=== PATIENT | female | born 1940 | race Caucasian/White ===

== ENCOUNTER 2018-03-06 10:43 | Inpatient (IN) | payer MEDICARE, OTHER, SELFPAY ==
[2018-03-06] VITALS (11 sets, daily range): BP systolic 150–202; BP diastolic 50–92; PULSE 65–77; RESP 16–21; TEMP 35.7–36.7; O2SAT 94–100; BMI 26.6
--- NOTE | 2018-03-06 10:53 | DI.RAD.S_ITS ---
PROCEDURE: XR SHOULDER RT MIN 2V INDICATIONS: fall w/ right shoulder pain TECHNIQUE: 2 views of the right of the shoulder were acquired. COMPARISON: None. FINDINGS: Bones there is an acute fracture involving subcapital region of right humeral shaft with superior and medial migration of humeral shaft in relation to humeral head. 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 No dislocation. No suspicious bony lesions. Visualized ribs appear intact. Soft tissues: No suspicious soft tissue calcifications. IMPRESSION: Acute displaced right proximal humeral shaft fracture. Dictated by: Prieto Campos M.D. on 03/06/2018 at 11:44 Approved by: Prieto Campos M.D. on 03/06/2018 at 11:45
--- NOTE | 2018-03-06 10:53 | DI.RAD.S_ITS ---
PROCEDURE: XR CHEST 1V INDICATIONS: fall w/ right shoulder pain TECHNIQUE: One view of the chest was acquired. COMPARISON: None. 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 Lungs and pleura: Ill-defined airspace opacity in the right lower lung field is seen suggestive of right basilar small infiltrate/atelectasis. Left lung is clear. No significant pleural effusion no gross pneumothorax. Mediastinum: Cardiac silhouette is enlarged. Mediastinal contours appear normal. Bones and chest wall: Acute fracture of right proximal humeral shaft is seen. Overlying soft tissues appear unremarkable. IMPRESSION: 1. Right basilar small infiltrate/atelectasis/contusion. No pleural effusion or pneumothorax. 2. Acute proximal right humeral shaft fracture. Dictated by: Prieto Campos M.D. on 03/06/2018 at 11:42 Approved by: Prieto Campos M.D. on 03/06/2018 at 11:44
--- NOTE | 2018-03-06 10:53 | DI.RAD.S_ITS ---
PROCEDURE: XR HUMERUS RT 2V INDICATIONS: fall with pain TECHNIQUE: 2 views of the humerus were acquired. COMPARISON: None. FINDINGS: Bones: No dislocations. No suspicious bony lesions. There is a comminuted fracture at the subcapital femoral neck and extending into the head of the tonsil right humerus, moderately angulated and impacted. Soft tissues: No suspicious soft tissue calcifications. IMPRESSION: Femoral head/neck fractures as discussed, with moderate angulation and impaction distortion along the fracture planes, acute in appearance. Dictated by: Dimitris Mullins M.D. on 03/06/2018 at 11:22 Approved by: Dimitris Mullins M.D. on 03/06/2018 at 11:27
[2018-03-06] MEDS: HYDROMORPHONE 0.5 MG INJ IV (11:04)
--- NOTE | 2018-03-06 11:11 | DI.CT.S_ITS ---
PROCEDURE: CT HEAD/BRAIN WO CON INDICATIONS: fall w/ head laceration TECHNIQUE: Noncontrast 4.5 mm thick angled axial sections acquired from the foramen magnum to the vertex, with coronal and sagittal reformats. For radiation dose reduction, the following was used: automated exposure control, adjustment of mA and/or kV according to patient size. COMPARISON: [facility], CT, CT CERVICAL SPINE WO CON, 03/06/2018, 11:08. FINDINGS: Image quality: Excellent. CSF spaces: Basal cisterns are patent. No extra-axial fluid collections. The ventricles are symmetric in size and shape. Brain: No intracranial masses but there is subarachnoid hemorrhage bilaterally, mild in overall severity, involving the lateral frontoparietal junction on the right and the superior left frontal and frontoparietal junction on the left. No mass effect is associated. No sign of hemorrhagic brain parenchymal contusion is found. No subdural or epidural hemorrhage is associated.. There is cerebral volume loss for age, with resultant ventricular and sulcal prominence. There are periventricular and deep white matter chronic small vessel ischemic changes. There is intracranial internal carotid artery atherosclerosis. Skull and face: Calvarium and visualized facial bones appear intact, without suspicious lesions. Sinuses: Visualized sinuses and mastoids are clear. IMPRESSION: Subarachnoid hemorrhage bilaterally, without mass effect, mild in overall severity. No additional traumatic injury sounds. Findings immediately called and discussed with the emergency room physician caring for the patient. Dictated by: Dimitris Mullins M.D. on 03/06/2018 at 11:28 Approved by: Dmiitris Mullins M.D. on 03/06/2018 at 11:40
--- NOTE | 2018-03-06 11:11 | DI.CT.S_ITS ---
PROCEDURE: CT CERVICAL SPINE WO CON INDICATIONS: fall w/ head laceration TECHNIQUE: Noncontrast 3 mm thick sections acquired from the skull base to the T4 level. Sagittal and coronal reformats were then constructed. For radiation dose reduction, the following was used: automated exposure control, adjustment of mA and/or kV according to patient size. COMPARISON: [facility], CR, XR CHEST 1V, 03/06/2018, 10:58. FINDINGS: Image quality: Excellent. Bones: No fractures or dislocations. Visualized superior ribs are intact. Soft tissues: Prevertebral soft tissues are normal in thickness. No paravertebral hematomas. No apical pneumothoraces. Note is made of a 2.9 cm ovoid sharply demarcated structure within the right thyroid lobe, measuring 20.9 Hounsfield units (above water density) which may represent a proteinaceous cyst but a solid lesion has not been entirely excluded given the noncontrast nature of this study. IMPRESSION: Degenerative disc disease moderately severe some C3-C7, but without fracture or traumatic subluxation associated. No normal abdominal Note is made of a large cystic structure, middle and lower thirds of the left thyroid lobe, as an incidental finding. This measures slightly above water in radiodensity at 20.9 Hounsfield units, and should be further assessed by dedicated thyroid ultrasound when symptoms have improved. Dictated by: Dimitris Mullins M.D. on 03/06/2018 at 11:40 Approved by: Dimitris Mullins M.D. on 03/06/2018 at 11:43
[2018-03-06] MEDS: HYDROMORPHONE 1 MG INJ 0.5 MG IV ×5 (11:35→19:27)
[2018-03-06 13:22] LABS: Add Manual Diff / Slide Review NO; Basophils Percent Auto 0.3 % (0-2); Eosinophils Percent Auto 1.2 % (2-4); Hematocrit 35.6 % (36-46); Hemoglobin 11.8 g/dL (12.0-16.0); Lymphocytes Percent Auto 6.5 % (25-40); Mean Corpuscular HGB Conc 33.3 % (30-36); Mean Corpuscular Hemoglobin 29.7 PG (26-34); Mean Corpuscular Volume 89.4 fL (80-100); Neutrophils Absolute Auto 10700 /uL (3000-5900); Platelet Count 227 X10^3/uL (150-400); Red Blood Cell Count 3.98 X10^6/uL (4.0-5.2); Red Cell Distribution Width 14.4 % (11.6-14.8); White Blood Cell Count 12.2 X10^3/uL (4.5-11.0)
[2018-03-06 13:30] LABS: INR 1.1 (0.9-1.3)
[2018-03-06 13:32] LABS: PTT Partial Thromboplastin Tim 31 SECONDS (26.4-36.2)
[2018-03-06 13:34] LABS: BUN Creatinine Ratio 28.6 (6-22); Blood Urea Nitrogen 20 mg/dL (7-17); Calcium 9.9 mg/dL (8.4-10.2); Carbon Dioxide 26 mmol/L (22-32); Chloride 108 mmol/L (98-107); Estimated Glomerular Filt Rate > 60.0 mL/min (>60); Glucose 113 mg/dL (80-110); HEMOLYSIS < 15 (0-50); Potassium 3.9 mmol/L (3.4-5.1); Sodium 142 mmol/L (137-145)
--- NOTE | 2018-03-06 15:13 | DI.CT.S_ITS ---
PROCEDURE: CT HEAD/BRAIN WO CON INDICATIONS: 77 year old woman with subarachnoid hemorrhage. TECHNIQUE: Noncontrast 4.5 mm thick angled axial sections acquired from the foramen magnum to the vertex, with coronal and sagittal reformats. For radiation dose reduction, the following was used: automated exposure control, adjustment of mA and/or kV according to patient size. COMPARISON: [facility], CT, CT HEAD/BRAIN WO CON, 03/06/2018, 11:08. FINDINGS: Image quality: Excellent. CSF spaces: Basal cisterns are patent. No extra-axial fluid collections. The ventricles are symmetric in size and shape. Brain: Foci of subarachnoid hemorrhage are present bilaterally, involving the right frontal lobe, left frontal lobe and left parietal lobe, minimally changed from the last exam. No masses or mass effect. There is mild cerebral volume loss for age, with resultant ventricular and sulcal prominence. There are mild periventricular and deep white matter chronic small vessel ischemic changes. There is intracranial internal carotid artery atherosclerosis. Skull and face: Calvarium and visualized facial bones appear intact, without suspicious lesions. Sinuses: Visualized sinuses and mastoids are clear. IMPRESSION: Stable subarachnoid hemorrhage bilaterally involving the right frontal and the left frontal and parietal lobes. There is no mass effect or midline shift. Dictated by: Diogo Wan M.D. on 03/06/2018 at 15:38 Approved by: Diogo Wan M.D. on 03/06/2018 at 15:44
--- NOTE | 2018-03-06 15:13 | ED.FALL ---
HPI - Fall <Harshil Dubose MD - Last Filed: 03/06/18 18:16> General Chief Complaint: Fall Stated Complaint: Ground Level Fall Time Seen by Provider: 03/06/18 10:52 History of Present Illness HPI Narrative: HPI 77-year-old female with no significant past medical history presents for evaluation of right shoulder shoulder pain and a right forehead laceration, patient tripped over uneven ground and fell onto her right shoulder and forehead on a hard paved surface, no LOC. Patient denies further injuries. No anticoagulation. No preaching chest pain, shortness breath, abdominal pain. M/S/F/SocHx notable for: please see HPI; remainder reviewed with patient and in chart. ROS: Negative constitutional, eye, cardiovascular, pulmonary, GI, , MSK, skin, neurologic, psychiatric, endocrine unless noted in the HPI. Exam General: Pleasant, in moderate discomfort, not in extremis. HENT: approximately 6 cm long full thickness transverse laceration above the right lateral eyebrow, no further evidence of facial or head trauma, TTP of orbits, TTP of midface, malocclusion, or septal hematoma. OP clear and moist, dentition intact. Eyes: EOMI, PERRL. Neck: Tracheal midline. No visible skin defects, no step-offs, no c-spine TTP, no stridor, or JVD. Cardiac: Regular rate and rhythm. Chest: No crepitus, visual evidence of trauma, no tenderness to palpation. Equal chest rise. Pulm: Clear to auscultation bilaterally, normal work of breathing without accessory muscle usage. Abd: Soft, nontender to palpation, nondistended, no guarding or visual evidence of trauma. Back: No spinous process tenderness to palpation, no step-offs or visible injuries. Pelvis: Stable, no tenderness to palpation or instability. RUE: market tenderness by the proximal right humerus/shoulder, no scapular or clavicular tenderness to palpation, distal humerus, elbow, forearm, wrist, hand, fingers visually normal without tenderness palpation, muscle compartments soft and nontender, chili pepper grinder 5/5, 2+ radial pulse, sensation intact to touch at hand. Wrist, and fingers with full functional range of motion. LUE: No visible injuries. Industry Consultant 5/5, radial pulse 2+, sensation intact at hand. Shoulder, elbow, wrist, and fingers with full functional range of motion. Muscle compartments of the upper arm, forearm, and hand are soft and without marked tenderness to palpation. RLE: No visible injuries. Dorsiflexion 5/5, distal pulse 2+, sensation intact at foot. Hip, knee, ankle, and toes with full functional range of motion. Muscle compartments of the thigh, calf, and foot are soft and without marked tenderness to palpation. LLE: No visible injuries. Dorsiflexion 5/5, distal pulse 2+, sensation grossly intact. Hip, knee, ankle, and toes with full functional range of motion. Muscle compartments of the thigh, calf, and foot are soft and without marked tenderness to palpation. Neuro: AOx3, CN VII intact Skin: Warm and dry (focal injuries noted above). Psych: Normal affect and judgment. Labs / Imaging (pertinent): CT Head: Subarachnoid hemorrhage bilaterally, without mass effect, mild in overall severity. No additional traumatic injury sounds. Findings immediately called and discussed with the emergency room physician caring for the patient. CT C-spine: Degenerative disc disease moderately severe some C3-C7, but without fracture or traumatic subluxation associated. Note is made of a large cystic structure, middle and lower thirds of the left thyroid lobe, as an incidental finding. This measures slightly above water in radiodensity at 20.9 Hounsfield units, and should be further assessed by dedicated thyroid ultrasound when symptoms have improved. XR R Humerus: Acute displaced right proximal humeral shaft fracture. XR R Shoulder: Femoral head/neck fractures as discussed, with moderate angulation and impaction distortion along the fracture planes, acute in appearance. CXR: 1. Right basilar small infiltrate/atelectasis/contusion. No pleural effusion or pneumothorax. 2. Acute proximal right humeral shaft fracture. CT head (repeat): stable subarachnoid hemorrhage bilaterally involving the right frontal and the left frontal parietal lobes. There is no mass effect or midline shift. MDM Previous chart, nursing note, and vitals reviewed. A: 77-year-old female with no significant past medical history presents for evaluation of right shoulder shoulder pain and a right forehead laceration, patient tripped over uneven ground and fell onto her right shoulder and forehead on a hard paved surface, no LOC. Evaluation: 1. SAH - patient with bilateral subarachnoid hemorrhages, no discernible neuro deficits. Discussed case with Dr. Fontanez, neurosurgery at . Images reviewed, exam reviewed, recommended repeat CT, if no change in CTR neuro exam findings patient is appropriate for outpatient follow up with their primary care physician. 2. Laceration - forehead laceration repaired by Lars Muñoz NP. Please refer to Nakia Taytatiana's documentation. 3. Right humeral fracture - CMS intact. Discussed with Dr. Luz, orthopedic surgeon commercial construction estimator, recommend sling and outpatient follow up. Coaptation splint placed, sling provided. ED Course: patient able to ambulate with significant right hip discomfort, right hip and pelvis films pending at time of patient care transfer to the [facility] overnight provider, Dr. Beebe. Impression: fall, bilateral SAH, right humeral fracture. (please reference below for remainder of encounter information) Related Data Home Medications Medication Instructions Recorded Confirmed Vitamin C 1 tab PO DAILY 03/06/18 03/06/18 amlodipine 2.5 mg PO DAILY 03/06/18 03/06/18 atorvastatin 10 mg PO BEDTIME 03/06/18 03/06/18 calcium carbonate-vitamin D3 1 tab PO DAILY 03/06/18 03/06/18 [Calcium 600 + D(3)] carvedilol 1 tab PO BID 03/06/18 03/06/18 inulin [Fiber Gummies] 1 tab PO DAILY 03/06/18 03/06/18 multivitamin 1 tab PO DAILY 03/06/18 03/06/18 omeprazole 1 cap PO DAILY 03/06/18 03/06/18 oxybutynin chloride 5 mg PO BID-TID PRN 03/06/18 03/06/18 Allergies Allergy/AdvReac Type Severity Reaction Status Date / Time No Known Drug Allergies Allergy Verified 03/06/18 10:58 Exam <Harshil Dubose MD - Last Filed: 03/06/18 18:16> Initial Vital Signs Initial Vital Signs: Vital Signs Temperature 96.3 F L 03/06/18 10:50 Pulse Rate 72 03/06/18 10:50 Respiratory Rate 18 03/06/18 10:50 Blood Pressure 202/86 H 03/06/18 10:50 Pulse Oximetry 97 03/06/18 10:50 <JOSHUA Coffey - Last Filed: 03/06/18 15:32> Initial Vital Signs Initial Vital Signs: Vital Signs Temperature 96.3 F L 03/06/18 10:50 Pulse Rate 72 03/06/18 10:50 Respiratory Rate 18 03/06/18 10:50 Blood Pressure 202/86 H 03/06/18 10:50 Pulse Oximetry 97 03/06/18 10:50 <JOSHUA Coffey - Last Filed: 03/06/18 15:32> Laceration Repair Laceration 1: Site: face (3 cm laceration just superior to the right eyebrow area) Side (If applicable): right Size (cm): 3 Description: irregular Depth: simple, single layer Local Anesthetic: lidocaine 1% Amount of anesthesia used (mL): 4 Pre-repair: wound explored and irrigated extensively Skin layer closed with: nylon Size (cm): 5-0 Number of sutures: 7 Technique: simple, interrupted Course <Harshil Dubose MD - Last Filed: 03/06/18 18:16> Orders Ordered: ED Orders 03/06/18 10:53 XR chest 1V Stat XR humerus RT 2V Stat XR shoulder RT min 2V Stat 03/06/18 11:11 CT cervical spine wo con Stat CT head/brain wo con Stat 03/06/18 13:15 Basic Metabolic Panel Stat Complete Blood Count AUTO DIFF Stat Partial Thromboplastin Time Stat Prothrombin Time INR Stat 03/06/18 15:13 CT head/brain wo con Stat 03/06/18 17:36 XR hip w pel if done RT 2V Stat Hydromorphone HCl (Dilaudid) 0.5 mg IV NOW PRN PRN Reason: pain Last Admin: 03/06/18 14:47 Dose: 0.5 mg Admin: 03/06/18 13:59 Dose: 0.5 mg Admin: 03/06/18 11:35 Dose: 0.5 mg Discontinued Medications Hydromorphone HCl (Dilaudid) 0.5 mg IV NOW ONE Stop: 03/06/18 10:54 Last Admin: 03/06/18 11:04 Dose: 0.5 mg Hydromorphone HCl (Dilaudid) 0.5 mg IV NOW ONE Stop: 03/06/18 13:58 Last Admin: 03/06/18 14:01 Dose: Not Given Vital Signs - 8 hr 03/06/18 10:50 03/06/18 12:05 03/06/18 13:03 Temperature 96.3 F L Pulse Rate 72 77 76 Respiratory Rate 18 18 18 Blood Pressure [Left Arm] 202/86 H 169/92 H 194/64 H Pulse Oximetry 97 99 95 03/06/18 14:18 03/06/18 15:15 03/06/18 16:07 Temperature Pulse Rate 74 73 76 Respiratory Rate 21 16 16 Blood Pressure [Left Arm] 158/50 H 161/52 H 163/52 H Pulse Oximetry 94 99 96 <JOSHUA Coffey - Last Filed: 03/06/18 15:32> Orders Ordered: ED Orders 03/06/18 10:53 XR chest 1V Stat XR humerus RT 2V Stat XR shoulder RT min 2V Stat 03/06/18 11:11 CT cervical spine wo con Stat CT head/brain wo con Stat 03/06/18 13:15 Basic Metabolic Panel Stat Complete Blood Count AUTO DIFF Stat Partial Thromboplastin Time Stat Prothrombin Time INR Stat 03/06/18 15:13 CT head/brain wo con Stat 03/06/18 17:36 XR hip w pel if done RT 2V Stat Hydromorphone HCl (Dilaudid) 0.5 mg IV NOW PRN PRN Reason: pain Last Admin: 03/06/18 14:47 Dose: 0.5 mg Admin: 03/06/18 13:59 Dose: 0.5 mg Admin: 03/06/18 11:35 Dose: 0.5 mg Discontinued Medications Hydromorphone HCl (Dilaudid) 0.5 mg IV NOW ONE Stop: 03/06/18 10:54 Last Admin: 03/06/18 11:04 Dose: 0.5 mg Hydromorphone HCl (Dilaudid) 0.5 mg IV NOW ONE Stop: 03/06/18 13:58 Last Admin: 03/06/18 14:01 Dose: Not Given Vital Signs - 8 hr 03/06/18 10:50 03/06/18 12:05 03/06/18 13:03 Temperature 96.3 F L Pulse Rate 72 77 76 Respiratory Rate 18 18 18 Blood Pressure [Left Arm] 202/86 H 169/92 H 194/64 H Pulse Oximetry 97 99 95 03/06/18 14:18 03/06/18 15:15 03/06/18 16:07 Temperature Pulse Rate 74 73 76 Respiratory Rate 21 16 16 Blood Pressure [Left Arm] 158/50 H 161/52 H 163/52 H Pulse Oximetry 94 99 96 MDM - Fall <Harshil Dubose MD - Last Filed: 03/06/18 18:16> Lab Data Result diagrams: 03/06/18 13:15 03/06/18 13:15 Lab Results 03/06/18 03/06/18 03/06/18 Range/Units 13:15 13:15 13:15 WBC 12.2 H (4.5-11.0) X10^3/uL RBC 3.98 L (4.0-5.2) X10^6/uL Hgb 11.8 L (12.0-16.0) g/dL Hct 35.6 L (36-46) % MCV 89.4 (80-100) fL MCH 29.7 (26-34) PG MCHC 33.3 (30-36) % RDW 14.4 (11.6-14.8) % Plt Count 227 (150-400) X10^3/uL Neut % (Auto) 88.0 H (50-75) % Lymph % (Auto) 6.5 L (25-40) % [place] % (Auto) 4.0 (3-14) % Eos % (Auto) 1.2 L (2-4) % Baso % (Auto) 0.3 (0-2) % Neut # (Auto) 22543 H (1264-3124) /uL PT 12.0 (10.1-12.7) SECONDS INR 1.1 (0.9-1.3) APTT 31 (26.4-36.2) SECONDS Sodium 142 (137-145) mmol/L Potassium 3.9 (3.4-5.1) mmol/L Chloride 108 H (98-107) mmol/L Carbon Dioxide 26 (22-32) mmol/L BUN 20 H (7-17) mg/dL Creatinine 0.70 (0.52-1.04) mg/dL Estimated GFR > 60.0 (>60) mL/min BUN/Creatinine Ratio 28.6 H (6-22) Glucose 113 H (80-110) mg/dL Calcium 9.9 (8.4-10.2) mg/dL <JOSHUA Coffey - Last Filed: 03/06/18 15:32> Lab Data Lab Results 03/06/18 03/06/18 03/06/18 Range/Units 13:15 13:15 13:15 WBC 12.2 H (4.5-11.0) X10^3/uL RBC 3.98 L (4.0-5.2) X10^6/uL Hgb 11.8 L (12.0-16.0) g/dL Hct 35.6 L (36-46) % MCV 89.4 (80-100) fL MCH 29.7 (26-34) PG MCHC 33.3 (30-36) % RDW 14.4 (11.6-14.8) % Plt Count 227 (150-400) X10^3/uL Neut % (Auto) 88.0 H (50-75) % Lymph % (Auto) 6.5 L (25-40) % [place] % (Auto) 4.0 (3-14) % Eos % (Auto) 1.2 L (2-4) % Baso % (Auto) 0.3 (0-2) % Neut # (Auto) 82107 H (7299-9095) /uL PT 12.0 (10.1-12.7) SECONDS INR 1.1 (0.9-1.3) APTT 31 (26.4-36.2) SECONDS Sodium 142 (137-145) mmol/L Potassium 3.9 (3.4-5.1) mmol/L Chloride 108 H (98-107) mmol/L Carbon Dioxide 26 (22-32) mmol/L BUN 20 H (7-17) mg/dL Creatinine 0.70 (0.52-1.04) mg/dL Estimated GFR > 60.0 (>60) mL/min BUN/Creatinine Ratio 28.6 H (6-22) Glucose 113 H (80-110) mg/dL Calcium 9.9 (8.4-10.2) mg/dL Discharge Plan Departure Prescriptions: No Action multivitamin Tablet 1 tab PO DAILY RF: 0 carvedilol 12.5 mg tablet 1 tab PO BID RF: 0 atorvastatin 10 mg tablet 10 mg PO BEDTIME RF: 0 amlodipine 2.5 mg tablet 2.5 mg PO DAILY RF: 0 omeprazole 40 mg capsule,delayed release(DR/EC) 1 cap PO DAILY RF: 0 oxybutynin chloride 5 mg Tablet 5 mg PO BID-TID PRN (Reason: Bladder Spasms) RF: 0 calcium carbonate-vitamin D3 [Calcium 600 + D(3)] 600 mg(1,500mg) -400 unit Tablet 1 tab PO DAILY RF: 0 inulin [Fiber Gummies] 2 gram Tablet,Chewable 1 tab PO DAILY RF: 0 Vitamin C 1 tab PO DAILY RF: 0
[2018-03-06] MEDS: ONDANSETRON 4 MG/2 ML INJ IV (17:30)
--- NOTE | 2018-03-06 17:36 | DI.RAD.S_ITS ---
PROCEDURE: XR HIP W PEL IF DONE RT 2V INDICATIONS: pain, difficulty ambulating TECHNIQUE: AP pelvis with lateral view(s) of the right hip(s). COMPARISON: None. FINDINGS: Bones: No fractures or dislocations. Pelvic ring appears intact. No suspicious bony lesions. Soft tissues: The visualized bowel gas pattern is normal. No suspicious soft tissue calcifications. IMPRESSION: Prior right total hip arthroplasty, no trauma found, no evidence of device loosening or disruption. Dictated by: Dimitris Mullins M.D. on 03/06/2018 at 19:27 Approved by: Dimitris Mullins M.D. on 03/06/2018 at 19:27
--- NOTE | 2018-03-06 19:36 | PC.NURSE ---
1700- pt up to bathroom, unable to bear weight to right leg, co pain to hip, Dr Dubose notified, Orders received for x-rays. Pt escorted by WC back to room.
[2018-03-06] MEDS: OXYCODONE/ACETAMINOPHEN 5/325 TABLET 1 TAB PO (22:49)
--- NOTE | 2018-03-07 | DI.CT.S_ITS ---
PROCEDURE: CT HEAD/BRAIN WO CON INDICATIONS: f/u SAH TECHNIQUE: Noncontrast 4.5 mm thick angled axial sections acquired from the foramen magnum to the vertex, with coronal and sagittal reformats. For radiation dose reduction, the following was used: automated exposure control, adjustment of mA and/or kV according to patient size. COMPARISON: [facility], CT, CT HEAD/BRAIN WO CON, 03/06/2018, 11:08. [facility], CT, CT HEAD/BRAIN WO CON, 03/06/2018, 15:14. FINDINGS: Image quality: Excellent. CSF spaces: Basal cisterns are patent. No extra-axial fluid collections. The ventricles are symmetric in size and shape. Brain: There are bilateral frontal subarachnoid hemorrhage, unchanged from the prior examinations. No intracranial masses. There is mild cerebral volume loss for age, with resultant ventricular and sulcal prominence. There are moderate periventricular and deep white matter chronic small vessel ischemic changes. Old lacunar infarcts are noted in basal ganglia bilaterally and right internal capsule. Skull and face: Calvarium and visualized facial bones appear intact, without suspicious lesions. Sinuses: Visualized sinuses and mastoids are clear. IMPRESSION: Stable bilateral frontal subarachnoid hemorrhage. Dictated by: Diogo Wan M.D. on 03/07/2018 at 10:53 Approved by: Diogo Wan M.D. on 03/07/2018 at 10:56
[2018-03-07 02:11] VITALS: BP 149/68; PULSE 98; RESP 16; TEMP 36.6; O2SAT 98
[2018-03-07] MEDS: OXYCODONE/ACETAMINOPHEN 5/325 TABLET 1 TAB PO ×4 (05:28→18:28)
[2018-03-07 06:00] VITALS: BP 170/66; PULSE 68; RESP 17; TEMP 36.6; O2SAT 97
[2018-03-07 08:42] VITALS: BP 166/59; PULSE 68; RESP 18; TEMP 36.8; O2SAT 96
[2018-03-07 12:00] VITALS: BP 148/56; PULSE 69; RESP 18; TEMP 36.9; O2SAT 94
--- NOTE | 2018-03-07 12:04 | CM.DANOTE ---
DCP: Case received, EMR reviewed and met with patient. Introduced self and role. DCP template completed with information currently available. Patient is a 77 year old female who admitted yesterday pm to the care of the hospitalist team. PCP: Dr. Dillard. Payer: confirmed: [employer], work related injury. Patient is a 77 year old female from [place], [place] She works for [employer], and while here, she tripped outside on the sidewalk, fracturing her right shoulder. Has a son that also lives in [place]. Patient alert and oriented, having difficulty bearing weight. P: May need fdc. Will also follow up with patient's son as well. Patient stated that she has stayed at a facility in [place], but need more information on this. Also, continue to note progress with physical therapy as well. Tana Terry, RN/Adjunct Professor Of [employer]
--- NOTE | 2018-03-07 14:56 | PC.NURSE ---
Day Shift Note: Patient doing well this shift. Alert and oriented times 3. Patient pain rated 4/10, relieved with percocet. No acute distress. No voiced complaint.
--- NOTE | 2018-03-07 15:10 | CM.DPC ---
DCP Cont: Patient is inpatient status. Did state that she had been in a nursing facility in the [facility] called [facility]. Called the admissions office, and requested that they call back. P: DCP continue to plan and assess, and will follow up again with retirement. Tana Terry RN/[employer]
--- NOTE | 2018-03-07 15:39 | PM.CN ---
History of Present Illness Date Patient Seen: 03/07/18 Time Patient Seen: 15:39 Chief complaint: Ground Level Fall Reason for consult: Ground level fall Requesting provider: Mariaelena Beebe Narrative: Gloria is a eliazar and very active 77-year-old lady who lives just [place]. 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 She decided to go to the art [place] and was walking around when she came across a bump in the concrete. She recalls that there was some sort of sign on the bump but she does not remember what it was. She says she tripped and ?went flying?. When she landed she says she had a terrible pain in her arm and pain in her hip. She reports that her glasses cut her head and it broke the right side of her glasses. She is fully oriented and relates this entire story to me. She denies headache. She reports that her right arm and shoulder are terribly uncomfortable. The initial pain in her hip has improved though her hip is still very very sore. She reports that she has an orthopedic surgeon in the [facility] that she has seen for a number of years. She has had a hip replacement and 2 knee replacements and has a very good relationship with him. She also tells me that her son and [id number] live across the street from her and will be coming up tomorrow to see a concert. They would be able to take her home if she was ready for discharge. At the time of admission, she was noted to have a right proximal humerus fracture and bilateral subarachnoid hemorrhages in the frontal region of the brain as well as a laceration over her right eye. The laceration was closed in the emergency room. She has had a repeat CT scan of her head today which shows that the subarachnoid hemorrhage is stable and has not caused significant cerebral edema and there is no evidence of further bleeding. The ER physician discussed the management of this injury with the neurologist at [facility] at the time of diagnosis. He recommended a repeat CT and if no change follow-up with primary care physician. [facility] Social History household members: none Smoking Status: Never smoker Meds Home Medications Medication Instructions Recorded Confirmed Type Vitamin C 1 tab PO DAILY 03/06/18 03/06/18 History amlodipine 2.5 mg PO DAILY 03/06/18 03/06/18 History atorvastatin 10 mg PO BEDTIME 03/06/18 03/06/18 History calcium carbonate-vitamin D3 1 tab PO DAILY 03/06/18 03/06/18 History [Calcium 600 + D(3)] carvedilol 1 tab PO BID 03/06/18 03/06/18 History inulin [Fiber Gummies] 1 tab PO DAILY 03/06/18 03/06/18 History multivitamin 1 tab PO DAILY 03/06/18 03/06/18 History omeprazole 1 cap PO DAILY 03/06/18 03/06/18 History oxybutynin chloride 5 mg PO BID-TID PRN 03/06/18 03/06/18 History Allergies Allergy/AdvReac Type Severity Reaction Status Date / Time No Known Drug Allergies Allergy Verified 03/06/18 10:58 Review of Systems Review of Systems All systems reviewed & are unremarkable except as noted in HPI and below Exam Vital Signs (past 8 hours): - 03/07/18 08:42 03/07/18 12:00 Temperature 98.2 F 98.5 F Pulse Rate 68 69 Respiratory Rate 18 18 Blood Pressure 166/59 H 148/56 H Pulse Oximetry 96 94 Oxygen Delivery Method Room Air Narrative Exam Narrative: Very pleasant well-nourished well-developed lady who appears much younger than her stated age. HEENT: There is a 2-3 cm laceration over her right eye that has been closed and is well approximated. She has bruising above and below her eye. Her sclera are clear and extraocular muscles are clearly intact. There is tenderness over her face but no crepitance. There is no evidence of midface instability. She reports her dental occlusion is normal. Lungs: Clear to auscultation bilaterally Heart: Regular rate and rhythm with a 3/5 systolic ejection murmur (patient reports she has had a aortic valve replacement in the past) Abdomen: Soft, nontender, active bowel sounds. Extremities: Right upper extremity is immobilized in a sling. Left upper extremity does not reveal any bruising or lesions. Right hip is tender to palpation without obvious injury. She has limited flexion secondary to pain. Left hip and leg are nontender. Bilateral lower extremities are without edema. No evidence of tissue ischemia. Objective Labs Result Diagrams: 03/06/18 13:15 03/06/18 13:15 Labs: Please see a full list of CT scans in the ER physician's note. No injuries were noted with the exception of those listed above. Assessment & Plan Plan: Assessment/Plan Narrative: Very pleasant and active 77-year-old lady who sustained a ground level fall and proximal humerus fracture as well as subarachnoid hemorrhage. Fortunately, Gloria is very healthy and has tolerated this insult well. I think she is appropriate for discharge in the morning with her son and [id number]. She can follow up with her primary care physician within 2 weeks and follow up with her orthopedic surgeon within 48 hr of discharge.
--- NOTE | 2018-03-07 15:47 | P.CONS_ITS ---
History of Present Illness Date Patient Seen: 03/07/18 Time Patient Seen: 15:39 Chief complaint: Ground Level Fall Reason for consult: Ground level fall Requesting provider: Mariaelena Beebe Narrative: Gloria is a eliazar and very active 77-year-old lady who lives just [place]. 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 She recalls that there was some sort of sign on the bump but she does not remember what it was. She says she tripped and ?went flying?. When she landed she says she had a terrible pain in her arm and pain in her hip. She reports that her glasses cut her head and it broke the right side of her glasses. She is fully oriented and relates this entire story to me. She denies headache. She reports that her right arm and shoulder are terribly uncomfortable. The initial pain in her hip has improved though her hip is still very very sore. She reports that she has an orthopedic surgeon in the [facility] that she has seen for a number of years. She has had a hip replacement and 2 knee replacements and has a very good relationship with him. She also tells me that her son and [id number] live across the street from her and will be coming up tomorrow to see a concert. They would be able to take her home if she was ready for discharge. At the time of admission, she was noted to have a right proximal humerus fracture and bilateral subarachnoid hemorrhages in the frontal region of the brain as well as a laceration over her right eye. The laceration was closed in the emergency room. She has had a repeat CT scan of her head today which shows that the subarachnoid hemorrhage is stable and has not caused significant cerebral edema and there is no evidence of further bleeding. The ER physician discussed the management of this injury with the neurologist at [facility] at the time of diagnosis. He recommended a repeat CT and if no change follow-up with primary care physician. [facility] Social History household members: none Smoking Status: Never smoker Meds Home Medications Medication Instructions Recorded Confirmed Type Vitamin C 1 tab PO DAILY 03/06/18 03/06/18 History amlodipine 2.5 mg PO DAILY 03/06/18 03/06/18 History atorvastatin 10 mg PO BEDTIME 03/06/18 03/06/18 History calcium carbonate-vitamin D3 1 tab PO DAILY 03/06/18 03/06/18 History [Calcium 600 + D(3)] carvedilol 1 tab PO BID 03/06/18 03/06/18 History inulin [Fiber Gummies] 1 tab PO DAILY 03/06/18 03/06/18 History multivitamin 1 tab PO DAILY 03/06/18 03/06/18 History omeprazole 1 cap PO DAILY 03/06/18 03/06/18 History oxybutynin chloride 5 mg PO BID-TID PRN 03/06/18 03/06/18 History Allergies Allergy/AdvReac Type Severity Reaction Status Date / Time No Known Drug Allergies Allergy Verified 03/06/18 10:58 Review of Systems Review of Systems All systems reviewed & are unremarkable except as noted in HPI and below Exam Vital Signs (past 8 hours): - 03/07/18 08:42 03/07/18 12:00 Temperature 98.2 F 98.5 F Pulse Rate 68 69 Respiratory Rate 18 18 Blood Pressure 166/59 H 148/56 H Pulse Oximetry 96 94 Oxygen Delivery Method Room Air Narrative Exam Narrative: Very pleasant well-nourished well-developed lady who appears much younger than her stated age. HEENT: There is a 2-3 cm laceration over her right eye that has been closed and is well approximated. She has bruising above and below her eye. Her sclera are clear and extraocular muscles are clearly intact. There is tenderness over her face but no crepitance. There is no evidence of midface instability. She reports her dental occlusion is normal. Lungs: Clear to auscultation bilaterally Heart: Regular rate and rhythm with a 3/5 systolic ejection murmur (patient reports she has had a aortic valve replacement in the past) Abdomen: Soft, nontender, active bowel sounds. Extremities: Right upper extremity is immobilized in a sling. Left upper extremity does not reveal any bruising or lesions. Right hip is tender to palpation without obvious injury. She has limited flexion secondary to pain. Left hip and leg are nontender. Bilateral lower extremities are without edema. No evidence of tissue ischemia. Objective Labs Result Diagrams: 03/06/18 13:15 03/06/18 13:15 Labs: Please see a full list of CT scans in the ER physician's note. No injuries were noted with the exception of those listed above. Assessment & Plan Plan: Assessment/Plan Narrative: Very pleasant and active 77-year-old lady who sustained a ground level fall and proximal humerus fracture as well as subarachnoid hemorrhage. Fortunately, Gloria is very healthy and has tolerated this insult well. I think she is appropriate for discharge in the morning with her son and [id number]. She can follow up with her primary care physician within 2 weeks and follow up with her orthopedic surgeon within 48 hr of discharge.
[2018-03-07 16:11] VITALS: BP 160/63; PULSE 73; RESP 20; TEMP 36.7; O2SAT 95
--- NOTE | 2018-03-07 16:58 | PT.IIE ---
Physical Therapy Inpatient Evaluation/Re-Eval M1 PT/OT-IP Prior Functional Status Start: 03/07/18 16:57 Freq: NEEDED Status: Active Protocol: Document 03/07/18 16:58 DLM (Rec: 03/07/18 17:30 DL [id number]) Medical Review Prior Functional Status Medical History Reviewed Yes Diet/Fluid Consistency Regular Communication WNL Mobility and Gait Independent without device Activities of Daily Living and IADL's Independent, works at [employer], takes care of her cats Social History Household Members none Living Arrangements House Number of Floors (Floors) One Floor Number of Stairs To Enter/Railing? 2, one rail Home Environment Standard Height Toilet Tub/Shower Home Equipment Front Wheel Walker Quad Cane Straight Cane Lift Recliner Employment Status Enterprise Engineer Employed Additional Social History Comment Son lives close, pt is from [place], [place]. Pt drives. M2 PT-IP Current Condition Start: 03/07/18 16:57 Freq: NEEDED Status: Active Protocol: Document 03/07/18 16:58 DLM (Rec: 03/07/18 17:30 DL [id number]) Physical Therapy Current Condition Current Condition Evaluation Date 03/07/18 Treatment Diagnosis impaired gait, right hip pain, right humeral fx Onset Date 03/06/18 Precautions Shoulder Precautions Sling Brace right humeral brace on pt for displaced fx Other Precautions no use of right shoulder, no weight bearing on right shoulder Weight Bearing Status Weight Bearing Status Full Weight Bearing Allowed Weight Bearing Amount (enter % no limitations right LE or #) (%) M3 PT-IP Subjective Start: 03/07/18 16:57 Freq: NEEDED Status: Active Protocol: Document 03/07/18 16:58 DLM (Rec: 03/07/18 17:30 DL [id number]) Subjective Physical Therapy Visit Type Type Initial Evaluation Visit Start Time 16:30 Visit Stop Time 16:58 Total Visit Minutes 28 Number of ASSET COORDINATOR Visits 0 Physical Therapy Visit Comments Patient Comments She feels she needs to go to SNF rehab, wants to have her Son take her home tomorrow. She reports she can call her orthopedic surgeon after she gets home. When asked she can not state a plan on how she will get to the SNF after going home nor how she will manage help at home if she discharges home. Therapy Pain Assessment Pain When Pain Assessed During Mobility Pain Present Pain Present Pain Reported Location Right Hip Intensity 6 Scale Used Numeric (1 - 10) Description Aching Pain Behaviors Guarding Pain Management Techniques Apply Cold Right Arm Intensity 4 Scale Used Numeric (1 - 10) Description Aching Pain Management Techniques Apply Cold Re-positioning M4 PT-IP Mobility and Gait Start: 03/07/18 16:57 Freq: NEEDED Status: Active Protocol: Document 03/07/18 16:58 DLM (Rec: 03/07/18 17:30 DLM [id number]) PT-Bed Mobility Assessment Supine to Sit Supine to Sit Standby Assistance Scooting Scooting to Edge of Bed Contact Guard Assistance PT-Transfer Assessment Sit to and From Stand Sit to and from Stand Minimal Assistance Equipment Transfer Assistive Device Gait Belt Small Based Quad Cane Orthotic/Prosthetic Devices or Brace: Yes Transfers Transfer Destination Chair Transfer Technique Stand Step Pivot Transfer Ability Level of Assist Contact Guard Assistance Minimal Assistance Comments Mobility Comments pain with attempts to advance right LE for stepping, sling and right humeral brace on pt Gait Assessment Gait Gait Assistance Required: Minimum Assistance Distance (Feet) (feet) 6 Assistive Devices Assistive Device Gait Belt Small Based Quad Cane Orthotic/Prosthetic Devices or Brace: Yes Gait Deviations General Gait Pattern Antalgic Decreased Stride Length Decreased Feet Clearance Factors Limiting Gait Function Factors Limiting Gait Function Decreased Strength Pain Comments Gait Comments Pt has difficulty advancing right LE for functional step, she inches her foot along on the floor or leans left and uses a partial right LE swing (LE fully extended) with minimal floor clearance. She is unsteady with her weight shift even with the quad cane. She reports the pain in right hip limits use of her LE. Pain described in anterior and posterior right hip. Pt left up in recliner with ice on right shoulder and hip. PT-Balance Assessment Sitting Balance and Reactions Static Sitting Balance Ability Good Dynamic Sitting Balance Ability Good Standing Balance and Reactions Static Standing Balance Ability Fair Dynamic Standing Balance Ability Fair Device Used quad cane M5 PT-IP Objective Assessments Start: 03/07/18 16:57 Freq: NEEDED Status: Active Protocol: Document 03/07/18 16:58 DLM (Rec: 03/07/18 17:30 DLM [id number]) Orientation Orientation/Cognition Level of Alertness Alert Orientation Name Age Birthday Month Date Year Day of Week Place Situation Safety Awareness Decreased Safety Awareness Memory Description No Deficits Noted Comments intermittent difficulty forming words during conversation, difficulty problem solving for home safety and discharge planning Gross Range of Motion Upper Extremity ROM Assessment Right Impaired Impairments unable to assess right shoulder due to fx and bracing Lower Extremity ROM Assessment Right Impaired Impairments pain with right hip flexion, tolerates 90 degrees in sitting Strength Upper Extremity Strength Assessment Right Impaired Shoulder not tested due to fx Lower Extremity Strength Assessment Right Impaired Hip hip flexion 2+/5 with pain Knee 5/5 Ankle DF 5/5 Coordination Assessment Gross Coordination Gross Coordination WNL Sensation Assessment Sensation Gross Sensation WNL Muscle Tone Muscle Tone WNL Yes M6 PT-IP Treatment Start: 03/07/18 16:57 Freq: NEEDED Status: Active Protocol: Document 03/07/18 16:58 DLM (Rec: 03/07/18 17:30 DLM [id number]) Physical Therapy Treatment Education Education Provided Precautions Weight Bearing Status Safety Equipment Issued Equipment Type and Company none, pt has sling and right humeral brace on from ED M7 PT-IP Assessment and Plan Start: 03/07/18 16:57 Freq: NEEDED Status: Active Protocol: Document 03/07/18 16:58 DLM (Rec: 03/07/18 17:30 DLM [id number]) PT Summary Assessment and Plan Potential Rehabilitation Potential Good Status of Condition at Evaluation Evolving Summary Impairments Pain ROM Strength Balance Bed Mobility Transfers Gait Activity Tolerance Assessment Summary Pt is significantly below her baseline functionally. Her right hip pain interferes with her ability to ambulate. The quad cane helps but her gait is still not functional for home. She has no functional use of her right shoulder due to her fx so using a fWW is not possible. She is not safe to discharge home alone at this time. She has no plan for assistance at home. Her Son lives close and can drive her back to [place] but he works and is not available to help her. She reports the desire to go to SNF but can not problem solve a plan to get there. Goals Bed Mobility Goal Independent Transfer Goal Standby Assistance Cane Gait Goal Contact Guard Assistance Cane Gait Distance 50 feet Other Goals up and down 2 steps with rail and moderate assist Days to Meet Goals 4 Frequency of Treatment Frequency Of Treatment Twice a Day Treatment Plan Physical Therapy Treatment Plan Bed Mobility Training Transfer Training Gait Training Therapeutic Exercise Balance Retraining Discharge Planning Hot or Cold Pack Recommendations To Nursing Amount of Assist Needed 1 Person Assist Discharge Recommendations PT Discharge Recommendations SNF Rehab
--- NOTE | 2018-03-07 18:03 | P.HP_ITS ---
History of Present Illness Chief complaint: Ground Level Fall Narrative: PATIENT IS A 77-YEAR-OLD FEMALE WAS IN HER USUAL HEALTH UNTIL THE DAY OF ADMISSION WHEN SHE HAD A FALL. PATIENT STATES THAT SHE WORKS FOR [employer] AND PICKED UP BY A VEHICLE AND MARVEL TROPONIN UP TO AND A CORDIS TO [facility]. [place] AND [place] THE WAY BACK FROM [place] AT [address] [place] HER FOOT STRUCK A CONCRETE AREA AND SHE FELL. SHE 1ST NOTICED PAIN OF HER SHOULDER AND SHE ALSO HAD BLEEDING FROM HER EYEBROW AREA. [place] FEMALE BYSTANDER CALLED 911 AND SHE WAS BROUGHT TO THE ED. PRIOR TO THE FALL THERE WAS NO PRESYNCOPE SYNCOPE LIGHTHEADEDNESS PALPITATIONS CHEST PAIN SHORTNESS OF BREATH. AFTER THE FALL THERE WAS NO LOSS OF CONSCIOUSNESS MOTOR WEAKNESS DYSARTHRIA DYSPHAGIA SPEECH DIFFICULTY SHE PRESENTED TO THE ED COGNITIVELY INTACT WITH NORMAL VITAL SIGNS. CT OF THE HEAD REVEALED SUBARACHNOID HEMORRHAGE BILATERALLY, WITHOUT MASS EFFECT, MILD OVERALL SEVERITY. THE CASE WAS DISCUSSED WITH DR. SEGUNDO NEUROSURGEON AT THE [facility]. HE DID NOT FEEL THAT ANY ACUTE INTERVENTION WAS NECESSARY AT THIS TIME. HE RECOMMENDED FOLLOW-UP CT HEAD EXAMS. IF THESE WERE UNREMARKABLE THEN IT WOULD BE APPROPRIATE FOR OUTPATIENT FOLLOW-UP WITH THE PATIENT'S PRIMARY CARE PHYSICIAN. SHE ALSO COMPLAINED OF SHOULDER PAIN MENTIONED ABOVE HUMERUS X-RAY TWO VIEW ON THE RIGHT WAS TAKEN. IT REVEALED A FEMORAL FRACTURE. EMERGENCY ROOM PHYSICIAN DISCUSSED THE INJURY WITH DR. CLARKE OF ORTHOPEDICS AND HE FAILED OUTPATIENT FOLLOW-UP WOULD BE SUFFICIENT AND RECOMMENDED THAT A SPLINT BE PLACED. ALSO THE PATIENT COMPLAINED OF RIGHT HIP PAIN. X-RAY REVEALED HER PRIOR RIGHT TOTAL HIP ARTHROPLASTY, NO TRAUMA WAS FOUND, NO EVIDENCE OF DEVICE LOOSENING OR DISRUPTION. BECAUSE OF HER KNEE FOR FATHER EVALUATION SHE WAS ADMITTED TO THE HOSPITAL Patient History Medical History HTN (hypertension) (Acute) Hyperlipidemia (Acute) Surgical History H/O aortic valve replacement (Acute) History of total bilateral knee replacement (Acute) History of total right hip replacement (Acute) Family & Social History Family History: Reviewed 03/07/18 by Mary Meza MD Social History: PATIENT IS A . SHE LIVES ALONE. SHE IS NOT USED ALCOHOL IN YEARS. SHE DISCONTINUED HER TOBACCO HABIT 50 YEARS AGO. SHE HAS A DAUGHTER WHO LIVES IN [place]. THE [place] . SHE WORKS FOR [employer] WHICH IS NEAR THE adjust [facility] household members none Prior Living Arrangements House Safety & Behavioral: Feels Safe in Current Yes Environment Been Physically Hurt or No Threatened By a Person Suicidal Ideation Description None Suicide Plan Description No Plan Tobacco & Substance use: Smoking Status Never smoker alcohol intake frequency holiday/special occasion Substance Use Type does not use Meds Home Medications Medication Instructions Recorded Confirmed Type Vitamin C 1 tab PO DAILY 03/06/18 03/06/18 History amlodipine 2.5 mg PO DAILY 03/06/18 03/06/18 History atorvastatin 10 mg PO BEDTIME 03/06/18 03/06/18 History calcium carbonate-vitamin D3 1 tab PO DAILY 03/06/18 03/06/18 History [Calcium 600 + D(3)] carvedilol 1 tab PO BID 03/06/18 03/06/18 History inulin [Fiber Gummies] 1 tab PO DAILY 03/06/18 03/06/18 History multivitamin 1 tab PO DAILY 03/06/18 03/06/18 History omeprazole 1 cap PO DAILY 03/06/18 03/06/18 History oxybutynin chloride 5 mg PO BID-TID PRN 03/06/18 03/06/18 History Allergies Allergy/AdvReac Type Severity Reaction Status Date / Time No Known Drug Allergies Allergy Verified 03/06/18 10:58 Review of Systems Review of Systems All systems reviewed & are unremarkable except as noted in HPI and below Exam Vital Signs (past 8 hours): - 03/07/18 12:00 03/07/18 16:11 Temperature 98.5 F 98.1 F Pulse Rate 69 73 Respiratory Rate 18 20 Blood Pressure 148/56 H 160/63 H Pulse Oximetry 94 95 Oxygen Delivery Method Room Air Narrative Exam Narrative: GENERAL NAD HEENT NORMOCEPHALIC ATRAUMATIC EXTRAOCULAR MOVEMENT IS INTACT PUPILS EQUAL ROUND REACTIVE FUNDI NOT VISUALIZED 0 4 INCREASE CLEAR SCLERA NONICTERIC NECK SUPPLE WITHOUT THYROMEGALY BRUITS OR JUGULAR VENOUS DISTENTION LUNGS CLEAR TO AUSCULTATION HEART REGULAR RHYTHM S1 AND S-2 NORMAL THERE WAS A GRADE 2/6 SOFT SYSTOLIC MURMUR ABDOMEN BENIGN BOWEL SOUNDS ACTIVE EXTREMITIESCoaptation splint AND sling IN PLACE NEUROLOGIC GROSSLY PHYSIOLOGIC PSYCHIATRIC AWAKE ALERT ORIENTED X3 MOOD AND AFFECT WERE NORMAL Objective Labs Result Diagrams: 03/06/18 13:15 03/06/18 13:15 Labs: CXR IMPRESSION: 1. Right basilar small infiltrate/atelectasis/contusion. No pleural effusion or pneumothorax. 2. Acute proximal right humeral shaft fracture. HUMERUS X-RAY RIGHT HUMERUS FRACTURE Acute displaced right proximal humeral shaft fracture SHOULDER X-RAY Acute displaced right proximal humeral shaft fracture C-SPINE CT IMPRESSION: Degenerative disc disease moderately severe some C3-C7, but without fracture or traumatic subluxation associated. No normal abdominal Note is made of a large cystic structure, middle and lower thirds of the left thyroid lobe, as an incidental finding. This measures slightly above water in radiodensity at 20.9 Hounsfield units, and should be further assessed by dedicated thyroid ultrasound when symptoms have improved. HEAD CT IMPRESSION: Subarachnoid hemorrhage bilaterally, without mass effect, mild in overall severity. No additional traumatic injury sounds. Findings immediately called and discussed with the emergency room physician caring for the patient. HIP X-RAY IMPRESSION: Prior right total hip arthroplasty, no trauma found, no evidence of device loosening or disruption. Assessment & Plan Plan: Assessment/Plan Narrative: 1. TRAUMATIC HEAD INJURY/SUBARACHNOID HEMORRHAGE MENTIONED IN HISTORY ABOVE THIS WAS DISCUSSED WITH NEUROSURGERY AT THE [facility]. THEY RECOMMENDED FOLLOW-UP CT SCANS WHICH WILL BE PERFORMED. AND IF NO SIGNIFICANT CHANGE NOTED THEN OUTPATIENT FOLLOW-UP WITH HER PRIMARY CARE PHYSICIAN 2. Acute displaced right proximal humeral shaft fracture. Conservative treatment with splint and sling as recommended by Orthopedics PT OT to see Disposition Most likely discharge tomorrow Quality VTE Deep Vein Thrombosis/Pulmonary Embolism Present on Admission: No
[2018-03-07] MEDS: SODIUM CHLORIDE 0.9% FLUSH 10 ML IV (18:36)
--- NOTE | 2018-03-07 19:10 | OT.IP.EVAL ---
Past Medical History (Last Updated 03/07/18 @ 19:10 by Binu Ornelas MD) HTN (hypertension) (Acute) Hyperlipidemia (Acute) Occupational Therapy Inpatient Evaluation/Re-Eval M1 PT/OT-IP Prior Functional Status Start: 03/07/18 16:57 Freq: NEEDED Status: Active Protocol: Document 03/07/18 16:58 DLM (Rec: 03/07/18 17:30 DLM [id number]) Medical Review Prior Functional Status Medical History Reviewed Yes Diet/Fluid Consistency Regular Communication WNL Mobility and Gait Independent without device Activities of Daily Living and IADL's Independent, works at [employer], takes care of her cats Social History Household Members none Living Arrangements House Number of Floors (Floors) One Floor Number of Stairs To Enter/Railing? 2, one rail Home Environment Standard Height Toilet Tub/Shower Home Equipment Front Wheel Walker Quad Cane Straight Cane Lift Recliner Employment Status Tax Associate Employed Additional Social History Comment Son lives close, pt is from [place], [place]. Pt drives. M1 PT/OT-IP Prior Functional Status Start: 03/07/18 18:02 Freq: NEEDED Status: Active Protocol: Document 03/07/18 16:15 CCC (Rec: 03/07/18 19:10 CCC [id number]) Medical Review Prior Functional Status Medical History Reviewed Yes Diet/Fluid Consistency Regular Communication WNL Mobility and Gait Independent without device Activities of Daily Living and IADL's Independent, works at [employer], takes care of her cats Social History Household Members none Living Arrangements House Number of Floors (Floors) One Floor Number of Stairs To Enter/Railing? 2, one rail Home Environment Standard Height Toilet Tub/Shower Home Equipment Front Wheel Walker Quad Cane Straight Cane Lift Recliner Employment Status Tax Associate Employed Additional Social History Comment Son lives close, pt is from [place], [place]. Pt drives. M2 OT-IP Current Condition Start: 03/07/18 18:02 Freq: Status: Active Protocol: Document 03/07/18 16:15 CCC (Rec: 03/07/18 19:10 CCC [id number]) Occupational Therapy Current Condition Current Condition Evaluation Date 03/07/18 Treatment Diagnosis Right Humerus FX, bilateral subarchnoid Diagnosis Onset Date 03/06/18 Post Operative Precautions Shoulder Precautions Sling Other Precautions no use of right shoulder, no weight bearing on right shoulder Weight Bearing Status Weight Bearing Status Full Weight Bearing Allowed Weight Bearing Amount (enter % no limitations right LE or #) (%) M3 OT- IP Subjective and Pain Start: 03/07/18 18:02 Freq: Status: Active Protocol: Document 03/07/18 16:15 [facility] (Rec: 03/07/18 19:10 [facility] [id number]) OT- Subjective Occupational Therapy Visit Type Type Initial Evaluation Visit Start Time 16:15 Visit Stop Time 17:20 Total Visit Minutes 65 Occupational Therapy Visit Comments Patient/Caregiver Goals Pt insistent that she is going home tomorrow and that she will she her doctor and then go to skilled rehab. OT Pain Assessment Pain When Pain Assessed During Mobility Pain Present Pain Present Pain Reported Location Right Hip Intensity 4 Right Arm Intensity 3 M4 OT- IP ADL's Start: 03/07/18 18:02 Freq: Status: Active Protocol: Document 03/07/18 16:15 [facility] (Rec: 03/07/18 19:10 [facility] [id number]) OT [id number] General Evaluation Areas Needing Assistance Cutting Food Opening Containers Comments OT Self-Feeding Comments Pt needs assist for all set-up due to unable to use RUE. OT ADL-Grooming General Evaluation Areas Needing Assistance Retrieving/Set-up of Grooming Items Combing/Brushing Hair OT ADL-Dressing General Eval Upper Body Dressing Ability Total Assistance Lower Body Dressing Ability Maximum Assistance Areas Needing Assistance Socks Orthosis/Prosthesis Comments OT Dressing Comments Pt will need all dressing needs, especially for sling and brace. M5 OT- IP IADL's Start: 03/07/18 18:02 Freq: Status: Active Protocol: Document 03/07/18 16:15 [facility] (Rec: 03/07/18 19:10 [facility] [id number]) OT-Instrumental Activities of Daily Living Home Safety Awareness Home Safety Comments Pt able to answer home safety question with 90% accuracy. Money Management Money Management Comments Pt having trouble with subraction 100-7's and needing increased time. Meal Preparation Meal Preparation Comments Will need assist. Hammer Setter Hammer Setter Comments Will need assist. Driving Driving Comments Will not be able to drive. M6 OT- IP Functional Cognition Start: 03/07/18 18:02 Freq: Status: Active Protocol: Document 03/07/18 16:15 [facility] (Rec: 03/07/18 19:10 [facility] [id number]) Cognitive Factors Limiting Selfcare Function Cognitive Ability Level of Alertness Alert Patient Orientation Name Age Birthday Month Date Year Day of Week Place Situation Attention Span Ability Capable of Focused Attention Capable of Sustained Attention Ability to Follow Commands Able to Follow Multi-Step Commands Memory Description Short Term Impaired Working Impaired Safety Awareness Underestimates Need for Assistance Problem Solving Ability Needs Assist to Identify Solutions Cognitive Tests SLUMS Pt scored 26/30 on the [facility] Mental Staus which mild cognitive disorder. Cognitive Comments Cognitive Assessment Comments Pt scored 90seconds on [employer] Part B which show ability to visually track and sequence appropriately. Pt insistent that she is going home tomorrow and had to point out to her that she will need assist for all needs at home and that would be best if she had / care upon discharge. Pt lives alone and family works during the day. Pt states she will just go and see her doctor and then go to skilled rehab. OT- Vision and Hearing OT- Hearing Assessment OT- Hearing Assessment WFL M7 OT- IP Mobility and Balance Start: 03/07/18 18:02 Freq: Status: Active Protocol: Document 03/07/18 16:15 [facility] (Rec: 03/07/18 19:10 [facility] [id number]) OT- Bed Mobility Assessment Rolling Type of Rolling Roll to Left Level of Assistance Standby Assistance Supine to Sit Supine to Sit Assist Standby Assistance OT-Transfer Assessment Sit to and From Stand Sit to and from Stand Minimal Assistance Transfers Transfer Ability Minimal Assistance Technique Transfer Destination Bed Chair Transfer Technique Stand Step Pivot Devices Transfer Assistive Devices Small Based Quad Cane Comments Mobility Comments Pt able to come up into long sitting from supine and then get legs off. Pt needing MARIE for walking as unsteady due to pain with RLE, please se PT eval for details. OT- Balance Assessment Sitting Balance and Reactions Static Sitting Balance Ability Normal Dynamic Sitting Balance Ability Good Standing Balance and Reactions Static Standing Balance Ability Fair M8 OT- IP Objective Assessments Start: 03/07/18 18:02 Freq: Status: Active Protocol: Document 03/07/18 16:15 [facility] (Rec: 03/07/18 19:10 [facility] [id number]) OT Gross Range of Motion Upper Extremity Range of Motion Assessment Right Impaired OT Strength Comments Strength Comments LUe 4/5 throughout. RUE NT as in sling, able to move her right fingers. OT-Muscle Tone Assessment Muscle Tone WNL Yes M9 OT- IP Assessment and Plan Start: 03/07/18 18:02 Freq: Status: Active Protocol: Document 03/07/18 16:15 [facility] (Rec: 03/07/18 19:10 [facility] [id number]) OT Summary Assessment and Plan Potential Rehabilitation Potential Excellent Analytic Complexity at Evaluation Moderate Summary OT Impairments Pain Range of Motion Strength Balance Coordination Functional Cognition Functional Mobility Grooming Dressing Toileting Bathing Toilet Transfers Shower Transfers Progress Towards Goals Slow Progress due to Medical Issues Slow Progress due to Cognition Assessment Summary Pt MOD complexity now NWB for RUE and unable to use RUE to assist with ADl and functional mobility needs and will need assist. Pt having some short term memory loss and decreased for executive problem solving at this time. Pt would benefit from skilled rehab once medically stable. Goals Grooming Goal Standby Assistance Dressing Goal Moderate Assistance Toileting Goal Standby Assistance Bathing Goal Moderate Assistance Grab Bars Hand Held Shower Sprayer Long Handled Sponge or [place] Toilet Transfer Goal Standby Assistance Bedside Commode Grab Bars Shower Transfer Goal Minimal Assistance Tub Transfer Bench Grab Bars Patient/Caregiver Education Goal Caregiver Independent Assisting Patient Days to Meet Goals 5 Frequency of Treatment Frequency Of Treatment Once a Day Treatment Plan OT Treatment Plan ADL Training Functional Cognition Training Functional Mobility Patient/Family Education Discharge Planning Other Treatment Recommendations and Next Traiing to john/doff sling/right humeral Treatment Focus brace. Discharge Recommendations OT Discharge Recommendations SNF Rehab Home Equipment Needs BSC, tub bench
[2018-03-07 20:47] VITALS: BP 152/53; PULSE 68; RESP 17; TEMP 36.6; O2SAT 94
--- NOTE | 2018-03-07 22:24 | PC.NURSE ---
pt alert and oriented x4, vss with some high BPs, noting pt not currently on usual BP medications. Right hip causing most pain, medication and cold therapy is stated to provide acceptable relief.
[2018-03-08 00:25] VITALS: BP 147/69; PULSE 71; RESP 16; TEMP 37; O2SAT 96
[2018-03-08] MEDS: SODIUM CHLORIDE 0.9% FLUSH 10 ML IV ×3 (00:34→20:40)
[2018-03-08] MEDS: OXYCODONE/ACETAMINOPHEN 5/325 TABLET 1 TAB PO ×5 (00:36→20:35)
[2018-03-08 05:10] VITALS: BP 146/48; PULSE 64; RESP 16; TEMP 36.9; O2SAT 94
[2018-03-08 09:00] VITALS: BP 148/72; PULSE 70; RESP 16; TEMP 36.4; O2SAT 95
--- NOTE | 2018-03-08 09:10 | CM.DPC ---
DCP Cont: Called and spoke to son, Rizwan. Discussed plan. He did state that patient has been to [facility] before, and may be an option for her. Let him know that they did not yet return call to this field case manager yet. Son stated that he is ready to orange picker machine operator his mom at discharge, but let him know, she would need some rehab after discharge. Discussed local facilities in this area, but want to be down near [place]. He will be in later to see patient. P: GREGORY will continue to plan and assess, and follow-up with José Manuel. Number: [phone]. Tana Terry RN/Carousel Operator
--- NOTE | 2018-03-08 11:45 | PT.IPTN ---
Physical Therapy Treatment Note M2 PT-IP Current Condition Start: 03/07/18 16:57 Freq: NEEDED Status: Active Protocol: Document 03/07/18 16:58 DLM (Rec: 03/07/18 17:30 DL [id number]) Physical Therapy Current Condition Current Condition Evaluation Date 03/07/18 Treatment Diagnosis impaired gait, right hip pain, right humeral fx Onset Date 03/06/18 Precautions Shoulder Precautions Sling Brace right humeral brace on pt for displaced fx Other Precautions no use of right shoulder, no weight bearing on right shoulder Weight Bearing Status Weight Bearing Status Full Weight Bearing Allowed Weight Bearing Amount (enter % no limitations right LE or #) (%) M3 PT-IP Subjective Start: 03/07/18 16:57 Freq: NEEDED Status: Active Protocol: Document 03/08/18 11:45 DLM (Rec: 03/08/18 12:38 [facility] [id number]) Subjective Physical Therapy Visit Type Type Treatment Note Visit Start Time 11:10 Visit Stop Time 11:45 Total Visit Minutes 35 Number of VALIDATION LEADER Visits 0 Physical Therapy Visit Comments Patient Comments She does not feel any better today, very sore, right hip pain continues Therapy Pain Assessment Pain When Pain Assessed During Mobility Pain Present Pain Present Pain Reported Location Right Hip Intensity 6 Scale Used Numeric (1 - 10) Description Aching Pain Behaviors Guarding [place] Pain Management Techniques Apply Cold Right Arm Intensity 4 Scale Used Numeric (1 - 10) Description Aching Pain Behaviors Guarding Holding Area Pain Management Techniques Apply Cold Re-positioning M4 PT-IP Mobility and Gait Start: 03/07/18 16:57 Freq: NEEDED Status: Active Protocol: Document 03/08/18 11:45 DLM (Rec: 03/08/18 12:38 [facility] [id number]) PT-Bed Mobility Assessment Rolling Type of Rolling Roll to Left Level of Assist Moderate Assistance Supine to Sit Supine to Sit Minimal Assistance Sit to Supine Sit to Supine Moderate Assistance Scooting Scooting to Edge of Bed Standby Assistance PT-Transfer Assessment Sit to and From Stand Sit to and from Stand Minimal Assistance Equipment Transfer Assistive Device Gait Belt Small Based Quad Cane Orthotic/Prosthetic Devices or Brace: Yes Gait Assessment Gait Gait Assistance Required: Minimum Assistance Distance (Feet) (feet) 5 Assistive Devices Assistive Device Gait Belt Small Based Quad Cane Orthotic/Prosthetic Devices or Brace: Yes Gait Deviations General Gait Pattern Decreased Stride Length Step-to Gait Factors Limiting Gait Function Factors Limiting Gait Function Decreased Strength Pain Comments Gait Comments pt wearing right UE sling and humeral fx brace, pain in right hip interferes with her advancing her right LE for functional steps, no improvement with therapist assisting the right LE, pt can only advance right LE during gait by inching her foot along the floor, pace of gait is very slow, 2 x 5 feet of gait this visit with seated rest between trials. Pt unable to stand at sink for ADL's and had to sit. PT-Balance Assessment Sitting Balance and Reactions Static Sitting Balance Ability Good Dynamic Sitting Balance Ability Good Standing Balance and Reactions Static Standing Balance Ability Good Dynamic Standing Balance Ability Fair Device Used quad cane M5 PT-IP Objective Assessments Start: 03/07/18 16:57 Freq: NEEDED Status: Active Protocol: Document 03/07/18 16:58 DLM (Rec: 03/07/18 17:30 DLM [id number]) Orientation Orientation/Cognition Level of Alertness Alert Orientation Name Age Birthday Month Date Year Day of Week Place Situation Safety Awareness Decreased Safety Awareness Memory Description No Deficits Noted Comments intermittent difficulty forming words during conversation, difficulty problem solving for home safety and discharge planning Gross Range of Motion Upper Extremity ROM Assessment Right Impaired Impairments unable to assess right shoulder due to fx and bracing Lower Extremity ROM Assessment Right Impaired Impairments pain with right hip flexion, tolerates 90 degrees in sitting Strength Upper Extremity Strength Assessment Right Impaired Shoulder not tested due to fx Lower Extremity Strength Assessment Right Impaired Hip hip flexion 2+/5 with pain Knee 5/5 Ankle DF 5/5 Coordination Assessment Gross Coordination Gross Coordination WNL Sensation Assessment Sensation Gross Sensation WNL Muscle Tone Muscle Tone WNL Yes M6 PT-IP Treatment Start: 03/07/18 16:57 Freq: NEEDED Status: Active Protocol: Document 03/08/18 11:45 DLM (Rec: 03/08/18 12:38 DLM [id number]) Physical Therapy Treatment Education Education Provided Precautions Weight Bearing Status Safety Brace Education [place] Patient Other Treatments Other Treatment Performed education in right UE sling and humeral fx brace, pt is dependent in managing both M7 PT-IP Assessment and Plan Start: 03/07/18 16:57 Freq: NEEDED Status: Active Protocol: Document 03/08/18 11:45 DLM (Rec: 03/08/18 12:38 DLM [id number]) PT Summary Assessment and Plan Summary Assessment Summary Pt continues to progress slowly. Her right hip pain interferes with functional gait. She has great difficulty advancing right foot for functional steps and only inches her foot across the floor. She is not safe to return home alone. She would need 24/7 assist to return home. Continue to recommend SNF rehab at discharge. No family present to discuss discharge planning. Spoke with immigration case manager about discharge planning. Pt continues to have difficulty with problem solving to create a safe plan for discharge. Frequency of Treatment Frequency Of Treatment Twice a Day Recommendations To Nursing Amount of Assist Needed 1 Person Assist Discharge Recommendations PT Discharge Recommendations SNF Rehab
--- NOTE | 2018-03-08 14:04 | CM.DPC ---
DCP Cont: Patient was originally to be discharged today, but due to difficulty with mobility, is in need of rehabilitation. Spoke to patient, asked her if there were any other facilities that she wished to go to. Reinstated that she does not want to go to any facilities here. Asked her about any facilities in her area, and she was not sure. Has emphasized that she wants to go to [facility]. This transplant case manager called them back today, spoke to a nurse, and gave her name of patient, but stated has been a while since she was here, and would have to talk to admissions. Left a detailed message with admissions, stating name of patient, and that this is an L&I claim, and need authorization. Left message with son, talked to him earlier regarding situation. P: Need to call Friday, follow up with [facility] nursing in [place] to see if there is availability for her, and L&I authorization, for patient may be discharged tomorrow. Tana Terry RN/Equipment Inspector
--- NOTE | 2018-03-08 17:07 | PT.IPTN ---
Physical Therapy Treatment Note M2 PT-IP Current Condition Start: 03/07/18 16:57 Freq: NEEDED Status: Active Protocol: Document 03/07/18 16:58 DLM (Rec: 03/07/18 17:30 DL [id number]) Physical Therapy Current Condition Current Condition Evaluation Date 03/07/18 Treatment Diagnosis impaired gait, right hip pain, right humeral fx Onset Date 03/06/18 Precautions Shoulder Precautions Sling Brace right humeral brace on pt for displaced fx Other Precautions no use of right shoulder, no weight bearing on right shoulder Weight Bearing Status Weight Bearing Status Full Weight Bearing Allowed Weight Bearing Amount (enter % no limitations right LE or #) (%) M3 PT-IP Subjective Start: 03/07/18 16:57 Freq: NEEDED Status: Active Protocol: Document 03/08/18 17:00 DLM (Rec: 03/08/18 17:07 [facility] [id number]) Subjective Physical Therapy Visit Type Type Treatment Note Visit Start Time 16:35 Visit Stop Time 17:00 Total Visit Minutes 25 Number of SUPERVISOR SOLDER MAKING Visits 0 Physical Therapy Visit Comments Patient Comments She does not feel like she is could go home, still having right hip pain that makes it hard to move her right LE Therapy Pain Assessment Pain When Pain Assessed During Mobility Pain Present Pain Present Pain Reported Location Right Hip Intensity 6 Scale Used Numeric (1 - 10) Description Aching Pain Behaviors Facial Grimacing Guarding Pain Management Techniques Apply Cold Right Arm Intensity 4 Scale Used Numeric (1 - 10) Description Aching Pain Behaviors Guarding Pain Management Techniques Apply Cold Re-positioning M4 PT-IP Mobility and Gait Start: 03/07/18 16:57 Freq: NEEDED Status: Active Protocol: Document 03/08/18 17:00 DLM (Rec: 03/08/18 17:07 [facility] [id number]) PT-Bed Mobility Assessment Supine to Sit Supine to Sit Contact Guard Assistance Minimal Assistance Head of Bed Elevated Sit to Supine Sit to Supine Moderate Assistance Scooting Scooting to Edge of Bed Contact Guard Assistance PT-Transfer Assessment Sit to and From Stand Sit to and from Stand Contact Guard Assistance Minimal Assistance Equipment Transfer Assistive Device Gait Belt Small Based Quad Cane Orthotic/Prosthetic Devices or Brace: Yes Gait Assessment Gait Gait Assistance Required: Contact Guard Assist Minimum Assistance Distance (Feet) (feet) 8 Assistive Devices Assistive Device Gait Belt Small Based Quad Cane Orthotic/Prosthetic Devices or Brace: Yes Gait Deviations General Gait Pattern Decreased Stride Length Decreased Feet Clearance Step-to Gait Factors Limiting Gait Function Factors Limiting Gait Function Decreased Activity Tolerance Decreased Strength Pain Comments Gait Comments two trials of gait this visit for 8 feet each with seated rest between them, difficulty advancing right LE to take a functional step, scoots right foot along the floor, able to fully clear the floor on 2 steps each gait trial, pace of gait is very slow, able to bear weight on right LE to advance left LE using the quad cane PT-Balance Assessment Sitting Balance and Reactions Static Sitting Balance Ability Normal Dynamic Sitting Balance Ability Normal Standing Balance and Reactions Static Standing Balance Ability Good Dynamic Standing Balance Ability Fair Device Used quad cane M5 PT-IP Objective Assessments Start: 03/07/18 16:57 Freq: NEEDED Status: Active Protocol: Document 03/07/18 16:58 DLM (Rec: 03/07/18 17:30 DLM [id number]) Orientation Orientation/Cognition Level of Alertness Alert Orientation Name Age Birthday Month Date Year Day of Week Place Situation Safety Awareness Decreased Safety Awareness Memory Description No Deficits Noted Comments intermittent difficulty forming words during conversation, difficulty problem solving for home safety and discharge planning Gross Range of Motion Upper Extremity ROM Assessment Right Impaired Impairments unable to assess right shoulder due to fx and bracing Lower Extremity ROM Assessment Right Impaired Impairments pain with right hip flexion, tolerates 90 degrees in sitting Strength Upper Extremity Strength Assessment Right Impaired Shoulder not tested due to fx Lower Extremity Strength Assessment Right Impaired Hip hip flexion 2+/5 with pain Knee 5/5 Ankle DF 5/5 Coordination Assessment Gross Coordination Gross Coordination WNL Sensation Assessment Sensation Gross Sensation WNL Muscle Tone Muscle Tone WNL Yes M6 PT-IP Treatment Start: 03/07/18 16:57 Freq: NEEDED Status: Active Protocol: Document 03/08/18 11:45 DLM (Rec: 03/08/18 12:38 DLM [id number]) Physical Therapy Treatment Education Education Provided Precautions Weight Bearing Status Safety Brace Education [place] Patient Other Treatments Other Treatment Performed education in right UE sling and humeral fx brace, pt is dependent in managing both M7 PT-IP Assessment and Plan Start: 03/07/18 16:57 Freq: NEEDED Status: Active Protocol: Document 03/08/18 17:00 DLM (Rec: 03/08/18 17:07 DLM [id number]) PT Summary Assessment and Plan Summary Progress Towards Goals Slow Progress due to Pain Slow Progress due to Activity Tolerance Assessment Summary She continues to progress very slowly. She made minor improvements in advancing right LE during gait this visit. Right hip pain continues to interfere with a functional gait pattern. Pt is tolerating her right humeral fx brace and sling well. She is compliant with keeping right UE in sling. She reports pain relief with use of ice and pain medication. Continue to recommend SNF rehab at discharge. She is not safe to discharge home alone. Frequency of Treatment Frequency Of Treatment Twice a Day Treatment Plan Other Recommendations and Next Treatment continue to advance gait as Focus tolerated by right hip pain Recommendations To Nursing Amount of Assist Needed 1 Person Assist Discharge Recommendations PT Discharge Recommendations SNF Rehab
[2018-03-08 17:30] VITALS: BP 157/68; PULSE 77; RESP 19; TEMP 36.8; O2SAT 97
[2018-03-08 20:26] VITALS: BP 149/59; PULSE 74; RESP 18; TEMP 36.9; O2SAT 97
--- NOTE | 2018-03-08 20:36 | PM.PN.1 ---
Subjective Interval history: The patient is still complaining of pain of the right hip joint area. Additionally it continues to be difficult for her to ambulate. Because of this she requires the bedside commode as opposed to going to the bathroom. The skin of her right humerus fracture is improved Exam Vital Signs (past 8 hours): - 03/08/18 17:30 03/08/18 20:26 Temperature 98.3 F 98.4 F Pulse Rate 77 74 Respiratory Rate 19 18 Blood Pressure 157/68 H 149/59 H Pulse Oximetry 97 97 Oxygen Delivery Method Room Air Narrative Exam Narrative: GENERAL NAD HEENT NORMOCEPHALIC ATRAUMATIC EXTRAOCULAR MOVEMENT IS INTACT PUPILS EQUAL ROUND REACTIVE FUNDI NOT VISUALIZED 0 4 INCREASE CLEAR SCLERA NONICTERIC NECK SUPPLE WITHOUT THYROMEGALY BRUITS OR JUGULAR VENOUS DISTENTION LUNGS CLEAR TO AUSCULTATION HEART REGULAR RHYTHM S1 AND S-2 NORMAL THERE WAS A GRADE 2/6 SOFT SYSTOLIC MURMUR ABDOMEN BENIGN BOWEL SOUNDS ACTIVE EXTREMITIES Coaptation splint AND sling IN PLACE NEUROLOGIC GROSSLY PHYSIOLOGIC PSYCHIATRIC AWAKE ALERT ORIENTED X3 MOOD AND AFFECT WERE NORMAL Objective Labs Result Diagrams: 03/06/18 13:15 03/06/18 13:15 Assessment & Plan Plan: Assessment/Plan Narrative: 1. TRAUMATIC HEAD INJURY/SUBARACHNOID HEMORRHAGE MENTIONED IN HISTORY ON 03/07/2018 THIS WAS DISCUSSED WITH NEUROSURGERY AT THE [facility]. THEY RECOMMENDED FOLLOW-UP CT SCANS WHICH WILL BE PERFORMED. AND IF NO SIGNIFICANT CHANGE NOTED THEN OUTPATIENT FOLLOW-UP WITH HER PRIMARY CARE PHYSICIAN. FOLLOW-UP CT SCANS OF THE HEAD HAS SHOWN NO WORSENING AND THEREFORE OUTPATIENT FOLLOW-UP IS IN ORDER 2. Acute displaced right proximal humeral shaft fracture She was seen by Dr. jerez on and felt that it would be reasonable for the follow-up with outpatient Ortho in 48 hr post discharge Disposition She was to be discharged today however with her poor ambulatory status because of her hip pain case management is helping with possible SNF placement Quality VTE Deep Vein Thrombosis/Pulmonary Embolism Present on Admission: No
--- NOTE | 2018-03-08 20:43 | P.PN_ITS ---
Subjective Interval history: The patient is still complaining of pain of the right hip joint area. Additionally it continues to be difficult for her to ambulate. Because of this she requires the bedside commode as opposed to going to the bathroom. The skin of her right humerus fracture is improved Exam Vital Signs (past 8 hours): - 03/08/18 17:30 03/08/18 20:26 Temperature 98.3 F 98.4 F Pulse Rate 77 74 Respiratory Rate 19 18 Blood Pressure 157/68 H 149/59 H Pulse Oximetry 97 97 Oxygen Delivery Method Room Air Narrative Exam Narrative: GENERAL NAD HEENT NORMOCEPHALIC ATRAUMATIC EXTRAOCULAR MOVEMENT IS INTACT PUPILS EQUAL ROUND REACTIVE FUNDI NOT VISUALIZED 0 4 INCREASE CLEAR SCLERA NONICTERIC NECK SUPPLE WITHOUT THYROMEGALY BRUITS OR JUGULAR VENOUS DISTENTION LUNGS CLEAR TO AUSCULTATION HEART REGULAR RHYTHM S1 AND S-2 NORMAL THERE WAS A GRADE 2/6 SOFT SYSTOLIC MURMUR ABDOMEN BENIGN BOWEL SOUNDS ACTIVE EXTREMITIES Coaptation splint AND sling IN PLACE NEUROLOGIC GROSSLY PHYSIOLOGIC PSYCHIATRIC AWAKE ALERT ORIENTED X3 MOOD AND AFFECT WERE NORMAL Objective Labs Result Diagrams: 03/06/18 13:15 03/06/18 13:15 Assessment & Plan Plan: Assessment/Plan Narrative: 1. TRAUMATIC HEAD INJURY/SUBARACHNOID HEMORRHAGE MENTIONED IN HISTORY ON 03/07/2018 THIS WAS DISCUSSED WITH NEUROSURGERY AT THE [facility]. THEY RECOMMENDED FOLLOW-UP CT SCANS WHICH WILL BE PERFORMED. AND IF NO SIGNIFICANT CHANGE NOTED THEN OUTPATIENT FOLLOW-UP WITH HER PRIMARY CARE PHYSICIAN. FOLLOW-UP CT SCANS OF THE HEAD HAS SHOWN NO WORSENING AND THEREFORE OUTPATIENT FOLLOW-UP IS IN ORDER 2. Acute displaced right proximal humeral shaft fracture She was seen by Dr. jerez on and felt that it would be reasonable for the follow- up with outpatient Ortho in 48 hr post discharge Disposition She was to be discharged today however with her poor ambulatory status because of her hip pain case management is helping with possible SNF placement Quality VTE Deep Vein Thrombosis/Pulmonary Embolism Present on Admission: No
--- NOTE | 2018-03-08 22:40 | PC.NURSE ---
patient alert and oriented x4, vss on RA, BP slightly high, not taking home blood pressure meds since hospitalized. Transferring from bed to toilet independently with stby, but needs one person assist when getting back in bed to raise right foot onto bed. Percocet q4 for pain, waiting to hear about placement for discharge, stated that family would be unable to transfer patient to SNF and would need transportation arranged once placed.
[2018-03-08 23:10] VITALS: BP 151/64; PULSE 73; RESP 16; TEMP 36.8; O2SAT 94
[2018-03-09] VITALS (7 sets, daily range): BP systolic 136–163; BP diastolic 55–68; PULSE 68–76; RESP 16–19; TEMP 36.6–37.1; O2SAT 95–96
--- NOTE | 2018-03-09 | DI.CT.S_ITS ---
PROCEDURE: CT PEL WO CON INDICATIONS: rule out right hip fracture TECHNIQUE: Noncontrast 3 mm axial sections acquired through the bony pelvis, with coronal and sagittal reformatting. COMPARISON: [facility], CR, XR HIP W PEL IF DONE RT 2V, 03/06/2018, 17:38. FINDINGS: Image quality: Excellent. Bones: No definite fracture seen. There is expected postoperative alignment of right hip arthroplasty. Hardware appears intact. No evidence of hardware loosening. Nonspecific subcentimeter focus of sclerosis in the left posteromedial ilium. Small lipoma seen in the right adductor muscle compartment Soft tissues: Intrapelvic contents grossly unremarkable. Bilateral hip subcutaneous edema IMPRESSION: Bilateral hip subcutaneous edema. No fracture identified. Expected postoperative alignment of right hip arthroplasty. Dictated by: Riky Blanca M.D. on 03/09/2018 at 16:09 Approved by: Riky Blanca M.D. on 03/09/2018 at 16:14
[2018-03-09] MEDS: OXYCODONE/ACETAMINOPHEN 5/325 TABLET 1 TAB PO ×5 (00:36→23:33)
--- NOTE | 2018-03-09 09:25 | PT.IPTN ---
Physical Therapy Treatment Note M2 PT-IP Current Condition Start: 03/07/18 16:57 Freq: NEEDED Status: Active Protocol: Document 03/09/18 09:25 TMS (Rec: 03/09/18 10:00 TMS [email or web address]) Physical Therapy Current Condition Current Condition Evaluation Date 03/07/18 Treatment Diagnosis impaired gait, right hip pain, right humeral fx Onset Date 03/06/18 Precautions Shoulder Precautions Sling Brace right humeral brace on pt for displaced fx Other Precautions no use of right shoulder, no weight bearing on right shoulder Weight Bearing Status Weight Bearing Status Full Weight Bearing Allowed Weight Bearing Amount (enter % no limitations right LE or #) (%) M3 PT-IP Subjective Start: 03/07/18 16:57 Freq: NEEDED Status: Active Protocol: Document 03/09/18 09:25 TMS (Rec: 03/09/18 10:00 TMS [email or web address]) Subjective Physical Therapy Visit Type Type Treatment Note Visit Start Time 09:10 Visit Stop Time 09:25 Total Visit Minutes 15 Number of HEALTHCARE ARCHITECT Visits 1 Physical Therapy Visit Comments Patient Comments Pt. willing to get up, doesn't think transfers are getting any easier. Therapy Pain Assessment Pain When Pain Assessed At Rest Pain Present Pain Present Pain Reported Location Right Hip Intensity 4 Scale Used Numeric (1 - 10) M4 PT-IP Mobility and Gait Start: 03/07/18 16:57 Freq: NEEDED Status: Active Protocol: Document 03/09/18 09:25 TMS (Rec: 03/09/18 10:00 TMS [email or web address]) PT-Bed Mobility Assessment Supine to Sit Supine to Sit Minimal Assistance Head of Bed Elevated Bedrails Scooting Scooting to Edge of Bed Contact Guard Assistance PT-Transfer Assessment Sit to and From Stand Sit to and from Stand Minimal Assistance 1 Person Assistance Equipment Transfer Assistive Device Gait Belt Small Based Quad Cane Orthotic/Prosthetic Devices or Brace: Yes Transfers Transfer Destination Chair Transfer Technique Stand Step Pivot Transfer Ability Level of Assist Minimal Assistance 1 Person Assistance Comments Mobility Comments Non functional steps with right L.E., tends to wiggle foot instead of picking it up. Gait Assessment Comments Gait Comments Transfer to chair only this AM , not moving right foot functionally. M5 PT-IP Objective Assessments Start: 03/07/18 16:57 Freq: NEEDED Status: Active Protocol: Document 03/07/18 16:58 DLM (Rec: 03/07/18 17:30 DLM [id number]) Orientation Orientation/Cognition Level of Alertness Alert Orientation Name Age Birthday Month Date Year Day of Week Place Situation Safety Awareness Decreased Safety Awareness Memory Description No Deficits Noted Comments intermittent difficulty forming words during conversation, difficulty problem solving for home safety and discharge planning Gross Range of Motion Upper Extremity ROM Assessment Right Impaired Impairments unable to assess right shoulder due to fx and bracing Lower Extremity ROM Assessment Right Impaired Impairments pain with right hip flexion, tolerates 90 degrees in sitting Strength Upper Extremity Strength Assessment Right Impaired Shoulder not tested due to fx Lower Extremity Strength Assessment Right Impaired Hip hip flexion 2+/5 with pain Knee 5/5 Ankle DF 5/5 Coordination Assessment Gross Coordination Gross Coordination WNL Sensation Assessment Sensation Gross Sensation WNL Muscle Tone Muscle Tone WNL Yes M6 PT-IP Treatment Start: 03/07/18 16:57 Freq: NEEDED Status: Active Protocol: Document 03/08/18 11:45 DLM (Rec: 03/08/18 12:38 DLM [id number]) Physical Therapy Treatment Education Education Provided Precautions Weight Bearing Status Safety Brace Education [place] Patient Other Treatments Other Treatment Performed education in right UE sling and humeral fx brace, pt is dependent in managing both M7 PT-IP Assessment and Plan Start: 03/07/18 16:57 Freq: NEEDED Status: Active Protocol: Document 03/09/18 09:25 TMS (Rec: 03/09/18 10:18 TMS [email or web address]) PT Summary Assessment and Plan Summary Progress Towards Goals Slow Progress due to Pain Slow Progress due to Activity Tolerance Assessment Summary Pt. continues to struggle with mobility, needs assist with both legs with supine to sit. (states it's too painful to move one at a time). Non functional steps with transfer . Recommendations To Nursing Amount of Assist Needed 1 Person Assist Discharge Recommendations PT Discharge Recommendations SNF Rehab
--- NOTE | 2018-03-09 15:35 | PC.NURSE ---
A&Ox3. Rt arm remains in sling due to fx, palpable radal pulse. Pain managed with 1 percocet po. She continues to complain about rt hip pain and requesting a follow up scan, Dr. Mock aware of inquiry. CMS intact. 1PA, slow to mobilize using cane to BSC out of bed. Awaiting for possible SNF d/c. No IV access, also aware.
--- NOTE | 2018-03-09 15:38 | PM.PN.1 ---
Subjective Date Patient Seen: 03/09/18 Time Patient Seen: 15:38 Interval history: Patient complains pain in the right shoulder, right hip, and right knee. Patient is requesting a scan of her head to rule out possible fracture. She is interested in going to [facility] in [place]. She has no complaints of shortness of breath or chest pain. She has no diarrhea. She continues to have difficulty with mobility. She has difficulty ambulating due to pain. Exam Vital Signs (past 8 hours): - HEENT: Right facial bruising, contusion over the right eye, Lungs: Clear to auscultation Cardiac exam: regular rate and rhythm, nl S1S2 Abd: Soft/non tender Ext: Right arm in sling, no lower extremity edema 03/09/18 09:00 03/09/18 13:00 Temperature 98 F 98 F Pulse Rate 70 68 Respiratory Rate 18 18 Blood Pressure 142/62 H 136/60 H Pulse Oximetry 95 96 Oxygen Delivery Method Room Air Objective Labs Result Diagrams: 03/06/18 13:15 03/06/18 13:15 Assessment & Plan (1) Subarachnoid hemorrhage after traumatic injury without open intracranial wound, with prolonged loss of consciousness and return to pre-existing level of consciousness: Problem details: Follow-up CT negative no further treatment indicated Current visit: Yes Status: Acute (2) Hip pain, acute: Problem details: Will obtain pelvic CT to rule out right hip fracture Current visit: Yes Status: Acute Plan: Assessment/Plan Narrative: Will continue usual home medications including amlodipine atorvastatin vitamin-D calcium and Coreg. Quality VTE Deep Vein Thrombosis/Pulmonary Embolism Present on Admission: No
--- NOTE | 2018-03-09 15:44 | P.PN_ITS ---
Subjective Date Patient Seen: 03/09/18 Time Patient Seen: 15:38 Interval history: Patient complains pain in the right shoulder, right hip, and right knee. Patient is requesting a scan of her head to rule out possible fracture. She is interested in going to [facility] in [place]. She has no complaints of shortness of breath or chest pain. She has no diarrhea. She continues to have difficulty with mobility. She has difficulty ambulating due to pain. Exam Vital Signs (past 8 hours): - HEENT: Right facial bruising, contusion over the right eye, Lungs: Clear to auscultation Cardiac exam: regular rate and rhythm, nl S1S2 Abd: Soft/non tender Ext: Right arm in sling, no lower extremity edema 03/09/18 09:00 03/09/18 13:00 Temperature 98 F 98 F Pulse Rate 70 68 Respiratory Rate 18 18 Blood Pressure 142/62 H 136/60 H Pulse Oximetry 95 96 Oxygen Delivery Method Room Air Objective Labs Result Diagrams: 03/06/18 13:15 03/06/18 13:15 Assessment & Plan (1) Subarachnoid hemorrhage after traumatic injury without open intracranial wound, with prolonged loss of consciousness and return to pre-existing level of consciousness: Problem details: Follow-up CT negative no further treatment indicated Current visit: Yes Status: Acute (2) Hip pain, acute: Problem details: Will obtain pelvic CT to rule out right hip fracture Current visit: Yes Status: Acute Plan: Assessment/Plan Narrative: Will continue usual home medications including amlodipine atorvastatin vitamin- D calcium and Coreg. Quality VTE Deep Vein Thrombosis/Pulmonary Embolism Present on Admission: No
--- NOTE | 2018-03-09 15:50 | PT.IPTN ---
Current Diagnoses Pain in unspecified hip (03/06/18) Traumatic subarachnoid hemorrhage without loss of consciousness, initial encounter (03/06/18) Traumatic subarachnoid hemorrhage with loss of consciousness of unspecified duration, initial encounter (03/06/18) Physical Therapy Treatment Note M2 PT-IP Current Condition Start: 03/07/18 16:57 Freq: NEEDED Status: Active Protocol: Document 03/09/18 09:25 TMS (Rec: 03/09/18 10:00 TMS [email or web address]) Physical Therapy Current Condition Current Condition Evaluation Date 03/07/18 Treatment Diagnosis impaired gait, right hip pain, right humeral fx Onset Date 03/06/18 Precautions Shoulder Precautions Sling Brace right humeral brace on pt for displaced fx Other Precautions no use of right shoulder, no weight bearing on right shoulder Weight Bearing Status Weight Bearing Status Full Weight Bearing Allowed Weight Bearing Amount (enter % no limitations right LE or #) (%) M3 PT-IP Subjective Start: 03/07/18 16:57 Freq: NEEDED Status: Active Protocol: Document 03/09/18 15:49 SAK (Rec: 03/09/18 15:49 SAK [id number]) Subjective Physical Therapy Visit Type Type Administrative Note Notes Patient not being seen due to out of room for medical test. Will not be seen for physical therpay this afternoon. M4 PT-IP Mobility and Gait Start: 03/07/18 16:57 Freq: NEEDED Status: Active Protocol: Document 03/09/18 09:25 TMS (Rec: 03/09/18 10:00 TMS [email or web address]) PT-Bed Mobility Assessment Supine to Sit Supine to Sit Minimal Assistance Head of Bed Elevated Bedrails Scooting Scooting to Edge of Bed Contact Guard Assistance PT-Transfer Assessment Sit to and From Stand Sit to and from Stand Minimal Assistance 1 Person Assistance Equipment Transfer Assistive Device Gait Belt Small Based Quad Cane Orthotic/Prosthetic Devices or Brace: Yes Transfers Transfer Destination Chair Transfer Technique Stand Step Pivot Transfer Ability Level of Assist Minimal Assistance 1 Person Assistance Comments Mobility Comments Non functional steps with right L.E., tends to wiggle foot instead of picking it up. Gait Assessment Comments Gait Comments Transfer to chair only this AM , not moving right foot functionally. M5 PT-IP Objective Assessments Start: 03/07/18 16:57 Freq: NEEDED Status: Active Protocol: Document 03/07/18 16:58 DLM (Rec: 03/07/18 17:30 DLM [id number]) Orientation Orientation/Cognition Level of Alertness Alert Orientation Name Age Birthday Month Date Year Day of Week Place Situation Safety Awareness Decreased Safety Awareness Memory Description No Deficits Noted Comments intermittent difficulty forming words during conversation, difficulty problem solving for home safety and discharge planning Gross Range of Motion Upper Extremity ROM Assessment Right Impaired Impairments unable to assess right shoulder due to fx and bracing Lower Extremity ROM Assessment Right Impaired Impairments pain with right hip flexion, tolerates 90 degrees in sitting Strength Upper Extremity Strength Assessment Right Impaired Shoulder not tested due to fx Lower Extremity Strength Assessment Right Impaired Hip hip flexion 2+/5 with pain Knee 5/5 Ankle DF 5/5 Coordination Assessment Gross Coordination Gross Coordination WNL Sensation Assessment Sensation Gross Sensation WNL Muscle Tone Muscle Tone WNL Yes M6 PT-IP Treatment Start: 03/07/18 16:57 Freq: NEEDED Status: Active Protocol: Document 03/08/18 11:45 DLM (Rec: 03/08/18 12:38 DLM [id number]) Physical Therapy Treatment Education Education Provided Precautions Weight Bearing Status Safety Brace Education [place] Patient Other Treatments Other Treatment Performed education in right UE sling and humeral fx brace, pt is dependent in managing both M7 PT-IP Assessment and Plan Start: 03/07/18 16:57 Freq: NEEDED Status: Active Protocol: Document 03/09/18 09:25 TMS (Rec: 03/09/18 10:18 TMS [email or web address]) PT Summary Assessment and Plan Summary Progress Towards Goals Slow Progress due to Pain Slow Progress due to Activity Tolerance Assessment Summary Pt. continues to struggle with mobility, needs assist with both legs with supine to sit. (states it's too painful to move one at a time). Non functional steps with transfer . Recommendations To Nursing Amount of Assist Needed 1 Person Assist Discharge Recommendations PT Discharge Recommendations SNF Rehab
--- NOTE | 2018-03-09 16:09 | OT.IP.TRT ---
Current Diagnoses Pain in unspecified hip (03/06/18) Traumatic subarachnoid hemorrhage without loss of consciousness, initial encounter (03/06/18) Traumatic subarachnoid hemorrhage with loss of consciousness of unspecified duration, initial encounter (03/06/18) Occupational Therapy Treatment Note M2 OT-IP Current Condition Start: 03/07/18 18:02 Freq: Status: Active Protocol: Document 03/07/18 16:15 [facility] (Rec: 03/07/18 19:10 [facility] [email or web address]) Occupational Therapy Current Condition Current Condition Evaluation Date 03/07/18 Treatment Diagnosis Right Humerus FX, bilateral subarchnoid Diagnosis Onset Date 03/06/18 Post Operative Precautions Shoulder Precautions Sling Other Precautions no use of right shoulder, no weight bearing on right shoulder Weight Bearing Status Weight Bearing Status Full Weight Bearing Allowed Weight Bearing Amount (enter % no limitations right LE or #) (%) M3 OT- IP Subjective and Pain Start: 03/07/18 18:02 Freq: Status: Active Protocol: Document 03/09/18 15:50 [facility] (Rec: 03/09/18 16:09 [facility] [email or web address]) OT- Subjective Occupational Therapy Visit Type Type Patient Unavailable Notes Pt not in room , out for medical procedure. Therefore to see pt for OT treatment tomorrow.
--- NOTE | 2018-03-09 16:39 | CM.DPC ---
DCP: continued: case received, EMRf reviewed and met this afternoon with pt to continue the d/c dispo process. Introduced self and role to pt. Pt confirms her plan for [facility] SNF but has never been there under an L%I claim. Cautioned her that this would be a different process that using her Medicare benefit and that a network facility and an auth would be needed. She confirmed that the accident just happened on 03/06 during process of her work. She was on [address] looking at the [employer] for a few minutes while waiting for her [employer], tripped and fell. The claim info/workers comp report of injury appears to have been scanned in to EMR Called [facility] and gave referral to admissions: [facility]. She confirmed they are L&I network but that the claims representative has to call them with auth. She also stated that they are full but may have a bed and recommend having a plan B. 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 direct admissions line: [phone] Dr. Mock met with during this conversation and has anurag CT of pelvis. Confirms pt not yet ready for d/c. Did call [facility] as local backup but did not give referral specifics: just clarification that they are in network with L&I. Will update pt when she returns form radiology or tomorrow am. Inpt admission status was confirmed by the UR RN team.
[2018-03-09] MEDS: CARVEDILOL 12.5 MG TABLET PO (20:42)
[2018-03-09] MEDS: DOCUSATE 100 MG CAPSULE PO (20:42)
[2018-03-10] VITALS (7 sets, daily range): BP systolic 129–164; BP diastolic 60–67; PULSE 70–74; RESP 16; TEMP 36.5–36.9; O2SAT 94–97
[2018-03-10] MEDS: OXYCODONE/ACETAMINOPHEN 5/325 TABLET 1 TAB PO ×3 (06:47→23:05)
[2018-03-10] MEDS: PANTOPRAZOLE 40 MG TABLET PO (06:48)
--- NOTE | 2018-03-10 07:56 | CM.DPC ---
[facility] referral faxed to Charmaine Peterson
--- NOTE | 2018-03-10 08:53 | CM.DPC ---
The L&I form was found in the patients belongings and I walked it down to the ER and handed it off to the gum maker, Eloise Garza so she can get the provider to do his/her part.
--- NOTE | 2018-03-10 09:01 | PM.PN.1 ---
Subjective Date Patient Seen: 03/10/18 Time Patient Seen: 09:01 Interval history: Patient reports pain is well controlled. Her main issue is placement. She prefers [facility] but will consider other options as they don't have space available today. There is also an issue with determining whether this will be an L&I claim vs. medicare Exam Vital Signs (past 8 hours): - 03/10/18 03:23 Temperature 97.7 F Pulse Rate 71 Respiratory Rate 16 Blood Pressure 155/67 H Pulse Oximetry 95 Oxygen Delivery Method Room Air Narrative Exam Narrative: HEENT: Right eye eccymosis improving, right eye laceration without exudate Lungs: Clear to auscultation CV: RRR Nl S1S2 3/6 JOE Abd: soft/non tender Ext: no edema Objective Labs Result Diagrams: 03/06/18 13:15 03/06/18 13:15 Labs: Pelvic CT confirmed no evidence of fracture of loosening of her prosthesis Assessment & Plan (1) Hip pain, acute: Problem details: Will obtain pelvic CT to rule out right hip fracture. CT Scan confirmed no evidence of fracture Current visit: Yes Status: Acute (2) Subarachnoid hemorrhage after traumatic injury without open intracranial wound, with prolonged loss of consciousness and return to pre-existing level of consciousness: Problem details: Follow-up CT negative no further treatment indicated Current visit: Yes Status: Acute (3) Closed fracture of right proximal humerus: Problem details: Continue Sling. She needs placement Qualifiers: Encounter type: initial encounter Fracture alignment: Fracture healing: Fracture morphology: unspecified fracture morphology Qualified Code(s): S42.201A - Unspecified fracture of upper end of right humerus, initial encounter for closed fracture Current visit: Yes Status: Acute Plan: Assessment/Plan Narrative: Await placement Quality VTE Deep Vein Thrombosis/Pulmonary Embolism Present on Admission: No
--- NOTE | 2018-03-10 09:05 | P.PN_ITS ---
Subjective Date Patient Seen: 03/10/18 Time Patient Seen: 09:01 Interval history: Patient reports pain is well controlled. Her main issue is placement. She prefers [facility] but will consider other options as they don 't have space available today. There is also an issue with determining whether this will be an L&I claim vs. medicare Exam Vital Signs (past 8 hours): - 03/10/18 03:23 Temperature 97.7 F Pulse Rate 71 Respiratory Rate 16 Blood Pressure 155/67 H Pulse Oximetry 95 Oxygen Delivery Method Room Air Narrative Exam Narrative: HEENT: Right eye eccymosis improving, right eye laceration without exudate Lungs: Clear to auscultation CV: RRR Nl S1S2 3/6 JOE Abd: soft/non tender Ext: no edema Objective Labs Result Diagrams: 03/06/18 13:15 03/06/18 13:15 Labs: Pelvic CT confirmed no evidence of fracture of loosening of her prosthesis Assessment & Plan (1) Hip pain, acute: Problem details: Will obtain pelvic CT to rule out right hip fracture. CT Scan confirmed no evidence of fracture Current visit: Yes Status: Acute (2) Subarachnoid hemorrhage after traumatic injury without open intracranial wound, with prolonged loss of consciousness and return to pre-existing level of consciousness: Problem details: Follow-up CT negative no further treatment indicated Current visit: Yes Status: Acute (3) Closed fracture of right proximal humerus: Problem details: Continue Sling. She needs placement Qualifiers: Encounter type: initial encounter Fracture alignment: Fracture healing: Fracture morphology: unspecified fracture morphology Qualified Code( s): S42.201A - Unspecified fracture of upper end of right humerus, initial encounter for closed fracture Current visit: Yes Status: Acute Plan: Assessment/Plan Narrative: Await placement Quality VTE Deep Vein Thrombosis/Pulmonary Embolism Present on Admission: No
[2018-03-10] MEDS: CALCIUM CARB/VIT D3 500/200 TABLET 1 EACH PO (10:14)
[2018-03-10] MEDS: MULTIVITAMIN 1 TABLET 1 TAB PO (10:14)
[2018-03-10] MEDS: AMLODIPINE 2.5 MG TABLET PO (10:14)
[2018-03-10] MEDS: DOCUSATE 100 MG CAPSULE PO ×2 (10:15→21:03)
[2018-03-10] MEDS: ASCORBIC ACID 500 MG TABLET PO (10:16)
[2018-03-10] MEDS: CARVEDILOL 12.5 MG TABLET PO ×2 (10:16→21:02)
[2018-03-10] MEDS: SENNOSIDES 8.6 MG TABLET PO ×2 (10:34→10:35)
--- NOTE | 2018-03-10 10:36 | PC.NURSE ---
Pt alert, oriented rates pain to right arm 7/10. Pt sitting up in chair, BT+ on right side. Denies flatus. Given prune juice and ordered laxatives.
--- NOTE | 2018-03-10 11:17 | CM.DPC ---
Spoke with Terry at L&I to start the auth process for SNF. He stated the claim information has not been received yet to their office so there is not a Nurse Customer Advocacy Manager to connect me with to start the auth. He said they will at times retro the auth since the patient is being D/C'd today, otherwise all he could do was take the information and watch for the claim to cross his desk which could be up to a week. I let Kristen know.
--- NOTE | 2018-03-10 11:46 | PT.IPTN ---
Current Diagnoses Pain in unspecified hip (03/06/18) Traumatic subarachnoid hemorrhage without loss of consciousness, initial encounter (03/06/18) Traumatic subarachnoid hemorrhage with loss of consciousness of unspecified duration, initial encounter (03/06/18) Unspecified fracture of upper end of right humerus, initial encounter for closed fracture (03/06/18) Physical Therapy Treatment Note M2 PT-IP Current Condition Start: 03/07/18 16:57 Freq: NEEDED Status: Active Protocol: Document 03/09/18 09:25 TMS (Rec: 03/09/18 10:00 TMS [id number]) Physical Therapy Current Condition Current Condition Evaluation Date 03/07/18 Treatment Diagnosis impaired gait, right hip pain, right humeral fx Onset Date 03/06/18 Precautions Shoulder Precautions Sling Brace right humeral brace on pt for displaced fx Other Precautions no use of right shoulder, no weight bearing on right shoulder Weight Bearing Status Weight Bearing Status Full Weight Bearing Allowed Weight Bearing Amount (enter % no limitations right LE or #) (%) M3 PT-IP Subjective Start: 03/07/18 16:57 Freq: NEEDED Status: Active Protocol: Document 03/10/18 11:43 [facility] (Rec: 03/10/18 11:45 [facility] [id number]) Subjective Physical Therapy Visit Type Type Treatment Note Visit Start Time 11:35 Visit Stop Time 11:40 Physical Therapy Visit Comments Patient Comments Gloria was working with OT when I came in for PT session. She was sitting on the commode and notes that the furthest she had walked in her room was into the bathroom. SHe requested to hold off on PT until the afternoon as she was currently working with OT and would need to rest
--- NOTE | 2018-03-10 12:43 | OT.IP.TRT ---
Current Diagnoses Pain in unspecified hip (03/06/18) Traumatic subarachnoid hemorrhage without loss of consciousness, initial encounter (03/06/18) Traumatic subarachnoid hemorrhage with loss of consciousness of unspecified duration, initial encounter (03/06/18) Unspecified fracture of upper end of right humerus, initial encounter for closed fracture (03/06/18) Occupational Therapy Treatment Note M2 OT-IP Current Condition Start: 03/07/18 18:02 Freq: Status: Active Protocol: Document 03/07/18 16:15 [facility] (Rec: 03/07/18 19:10 [facility] [id number]) Occupational Therapy Current Condition Current Condition Evaluation Date 03/07/18 Treatment Diagnosis Right Humerus FX, bilateral subarchnoid Diagnosis Onset Date 03/06/18 Post Operative Precautions Shoulder Precautions Sling Other Precautions no use of right shoulder, no weight bearing on right shoulder Weight Bearing Status Weight Bearing Status Full Weight Bearing Allowed Weight Bearing Amount (enter % no limitations right LE or #) (%) M3 OT- IP Subjective and Pain Start: 03/07/18 18:02 Freq: Status: Active Protocol: Document 03/10/18 12:34 [facility] (Rec: 03/10/18 12:43 [facility] [id number]) OT- Subjective Occupational Therapy Visit Type Type Treatment Note Visit Start Time 11:30 Visit Stop Time 12:20 Total Visit Minutes 50 Notes Pt needing lots of encouragement to participate in therapy today. OT Pain Assessment Pain When Pain Assessed At Rest Pain Present Pain Present Pain Reported M4 OT- IP ADL's Start: 03/07/18 18:02 Freq: Status: Active Protocol: Document 03/10/18 12:34 [facility] (Rec: 03/10/18 12:43 [facility] [id number]) OT FXB-Bcwm-Kabgfed General Evaluation Areas Needing Assistance Cutting Food Opening Containers Comments OT Self-Feeding Comments Set-up assist. OT ADL-Grooming General Evaluation Grooming Ability Minimal Assistance Areas Needing Assistance Retrieving/Set-up of Grooming Items Combing/Brushing Hair Comments OT Grooming Comments Assist to brush/comb hair and put up into ponytail. OT ADL-Oral Care General Eval Oral Care Ability Standby Assistance Comments Oral Care Comments set-up. OT ADL-Dressing General Eval Upper Body Dressing Ability Total Assistance Lower Body Dressing Ability Maximum Assistance OT ADL-Toileting General Evaluation Toileting Ability Standby Assistance Devices Toileting Assistive Devices Commode Comments OT Toileting Comments Set-up. M5 OT- IP IADL's Start: 03/07/18 18:02 Freq: Status: Active Protocol: Document 03/07/18 16:15 [facility] (Rec: 03/07/18 19:10 [facility] [id number]) OT-Instrumental Activities of Daily Living Home Safety Awareness Home Safety Comments Pt able to answer home safety question with 90% accuracy. Money Management Money Management Comments Pt having trouble with subraction 100-7's and needing increased time. Meal Preparation Meal Preparation Comments Will need assist. Steam Clean Machine Operator Steam Clean Machine Operator Comments Will need assist. Driving Driving Comments Will not be able to drive. M6 OT- IP Functional Cognition Start: 03/07/18 18:02 Freq: Status: Active Protocol: Document 03/10/18 12:34 [facility] (Rec: 03/10/18 12:43 [facility] [id number]) Cognitive Factors Limiting Selfcare Function Cognitive Ability Level of Alertness Alert Patient Orientation Name Age Birthday Month Date Year Day of Week Place Situation Attention Span Ability Capable of Focused Attention Capable of Sustained Attention Ability to Follow Commands Able to Follow Multi-Step Commands Memory Description Working Impaired Safety Awareness Underestimates Need for Assistance Problem Solving Ability Needs Assist to Identify Solutions Cognitive Comments Cognitive Assessment Comments Pt tends to repeat herself during conversation. Pt encouraged to be proactive with her care and with help get to the toilet, stand for grooming,etc... M7 OT- IP Mobility and Balance Start: 03/07/18 18:02 Freq: Status: Active Protocol: Document 03/10/18 12:34 [facility] (Rec: 03/10/18 12:43 [facility] [id number]) OT-Transfer Assessment Sit to and From Stand Sit to and from Stand Standby Assistance Transfers Transfer Ability Standby Assistance Contact Guard Assistance Technique Transfer Destination Bedside Commode Chair Transfer Technique Stand Step Pivot Devices Transfer Assistive Devices Small Based Quad Cane Comments Mobility Comments Pt continues to have difficulty to filler picker right foot and tends to move from heel to toe or just sliding foot on the floor to advance the right foot. OT- Balance Assessment Sitting Balance and Reactions Static Sitting Balance Ability Normal Dynamic Sitting Balance Ability Good Standing Balance and Reactions Static Standing Balance Ability Fair M8 OT- IP Objective Assessments Start: 03/07/18 18:02 Freq: Status: Active Protocol: Document 03/07/18 16:15 [facility] (Rec: 03/07/18 19:10 [facility] [id number]) OT Gross Range of Motion Upper Extremity Range of Motion Assessment Right Impaired OT Strength Comments Strength Comments LUe 4/5 throughout. RUE NT as in sling, able to move her right fingers. OT-Muscle Tone Assessment Muscle Tone WNL Yes M9 OT- IP Assessment and Plan Start: 03/07/18 18:02 Freq: Status: Active Protocol: Document 03/10/18 12:34 [facility] (Rec: 03/10/18 12:43 [facility] [id number]) OT Summary Assessment and Plan Summary Progress Towards Goals Slow Progress due to Pain Slow Progress due to Medical Issues Slow Progress due to Cognition Assessment Summary Pt continue to have difficulty to move right foot and unable to use RUE and therefore will benefit from skilled rehab prior to going home. Goals Days to Meet Goals 5 Frequency of Treatment Frequency Of Treatment Once a Day Treatment Plan OT Treatment Plan ADL Training Functional Cognition Training Functional Mobility Patient/Family Education Discharge Planning Other Treatment Recommendations and Next Training to john/doff sling/ Treatment Focus RUE shoulder brace. Discharge Recommendations OT Discharge Recommendations SNF Rehab Home Equipment Needs BSC, tub bench
--- NOTE | 2018-03-10 14:07 | PM.OP.1 ---
Operative Date/Time/Diagnoses Date of procedure: 03/10/18 Time of procedure: 14:07 Pre-op diagnosis: Screening Post-op diagnosis: same Procedure & Clinicians Procedure: Colonoscopy Same procedure as scheduled: Yes Indications: Last colonoscopy 2003 Surgeon: Mary Meza Anesthesia Type: Sedation (Versed 8 mg; fentanyl 200 mcg) Operative Notes Findings: 1. Excellent prep 2. Very tortuous colon 3. No polyps or mass lesions 4. No AV malformations 5. Mild diverticulosis limited to the sigmoid region 6. Grade 1-2 internal hemorrhoids 7. Essentially normal colonoscopy for age Closure Type: not applicable Procedure in detail: After obtaining informed consent, the patient was brought to the GI suite and placed in the left lateral decubitus position on the examination table. After placement of appropriate monitors, the patient was given incremental doses of Versed and Fentanyl until an appropriate level of sedation was achieved. A time out was held per SCOAP protocol. A digital rectal examination was performed and did not reveal any masses or obstructing lesions. The colonoscope was gently passed into the patient's anus and the entire colon navigated to the level of the cecum with minimal difficulty. Once in the cecum, the scope was withdrawn being sure to go before and beyond all mucosal folds and prominences and get an excellent examination. The findings are noted above. At the level of the rectal vault, the scope was retroflexed and the internal anal canal was examined. The scope was straightened and air aspirated from the colon. The instrument was removed from the patient's body and the procedure was concluded. The patient was allowed to awaken from sedation without difficulty and taken to the post-anesthesia care unit in good condition. Total sedation time 30 min Total withdrawal time 13 min
--- NOTE | 2018-03-10 15:37 | CM.DPC ---
DCP: continued: Met with pt early this morning to continue the search for an appropriate d/c dispo with consideration of pt's choices and the complexity of the L&I process. Discussed with Dr. Mock and team in morning team meeting and then was present in room when Dr. Mock confirmed for pt that she was, indeed, stable for d/c today but understood that all was not yet in place for the snf rehab. Continued to work this through the day with periodic updates to pt. Approx 1.5 hours spend on d/c planning today: Outcome: With pt's permission went through her items in room closet and found the initial L&I paperwork, started in the ER but not completed. [facility] followed up with the grain oilseed or pasture farm manager/see her notes. Pt's copy given to her. [id number] Confirmed with Katy Georges [facility] that until an itemized plan for payment was received from an L&I caser shoe parts she would not be able to accept pt. She further noted she had anesthesiology technologist with new claims, stating the patients they tend to accept all had establishes claims. She stated that their facility does not consider the Medicare and supplement at all in these cases. She will keep the referral in event that at some point in future the claim would be completed. Terry at L&I reported to [facility] that the claim may be at least a week before it even comes across their desk/see her notes. Pt identified plan B facility as [facility]. Referral started. Confirmed with their college administrator that they are not network with L&I. Pt updated. Discussed L&I challenges with Mary Kay/ABHIJIT and with the Medicare and supplement as backup. Mary Kay stated that in her experience L&I does take some time to process but if L&I eventually denies the claim pt's Medicare can be easily billed. She confirmed same with her college administrator W[employer]. Went over all of this info with pt this afternoon. She now is willing to consider [facility] as is aware that she is ready for d/c. Mary Kay has agreed to come over and talk with her and Mary Kay is now given her name and specific info. Mary Kay further notes that when the claim does fully come throught and all is in place, likely in week or 2, [facility] would be happy to coordinate a transfer to her facility of choice: [facility]. Per pt's request: left a vm for managed care coordinator Yari Pisano/[employer] [phone] ex [phone] with specifics of the d/c plan. P: follow closely....likely d/c to [facility] tomorrow. Will update Dr. Mock in morning meeting...PASRR: will be done before d/c.
--- NOTE | 2018-03-10 15:49 | PT.IPTN ---
Current Diagnoses Pain in unspecified hip (03/06/18) Traumatic subarachnoid hemorrhage without loss of consciousness, initial encounter (03/06/18) Traumatic subarachnoid hemorrhage with loss of consciousness of unspecified duration, initial encounter (03/06/18) Unspecified fracture of upper end of right humerus, initial encounter for closed fracture (03/06/18) Physical Therapy Treatment Note M2 PT-IP Current Condition Start: 03/07/18 16:57 Freq: NEEDED Status: Active Protocol: Document 03/09/18 09:25 TMS (Rec: 03/09/18 10:00 TMS [id number]) Physical Therapy Current Condition Current Condition Evaluation Date 03/07/18 Treatment Diagnosis impaired gait, right hip pain, right humeral fx Onset Date 03/06/18 Precautions Shoulder Precautions Sling Brace right humeral brace on pt for displaced fx Other Precautions no use of right shoulder, no weight bearing on right shoulder Weight Bearing Status Weight Bearing Status Full Weight Bearing Allowed Weight Bearing Amount (enter % no limitations right LE or #) (%) M3 PT-IP Subjective Start: 03/07/18 16:57 Freq: NEEDED Status: Active Protocol: Document 03/10/18 15:49 [facility] (Rec: 03/10/18 16:20 DLM [id number]) Subjective Physical Therapy Visit Type Type Treatment Note Visit Start Time 15:00 Visit Stop Time 15:49 Total Visit Minutes 49 Physical Therapy Visit Comments Patient Comments She is upset about being so far away from home and having no friends/family close. Therapy Pain Assessment Pain When Pain Assessed During Mobility Pain Present Pain Present Pain Reported Location Right Hip Intensity 5 Scale Used Numeric (1 - 10) Description Aching Pain Behaviors Wincing Pain Management Techniques Apply Cold Right Arm Intensity 4 Scale Used Numeric (1 - 10) Description Aching Pain Behaviors Guarding Pain Management Techniques Apply Cold M4 PT-IP Mobility and Gait Start: 03/07/18 16:57 Freq: NEEDED Status: Active Protocol: Document 03/10/18 15:49 [facility] (Rec: 03/10/18 16:20 DLM [id number]) PT-Transfer Assessment Sit to and From Stand Sit to and from Stand Contact Guard Assistance Equipment Transfer Assistive Device Gait Belt Small Based Quad Cane Orthotic/Prosthetic Devices or Brace: Yes Comments Mobility Comments static standing balance training with and without the quad cane with CG/min assist, pt up in recliner and not wanting to go back to bed at this time Gait Assessment Gait Gait Assistance Required: Minimum Assistance Distance (Feet) (feet) 20 Able to Maintain Weight Bearing Status Yes During Gait Assistive Devices Assistive Device Gait Belt Small Based Quad Cane Orthotic/Prosthetic Devices or Brace: Yes Gait Deviations General Gait Pattern Antalgic Decreased Stride Length Decreased Feet Clearance Step-to Gait Factors Limiting Gait Function Factors Limiting Gait Function Decreased Strength Pain Comments Gait Comments pt continues to have difficulty advancing right LE for functional steps during gait, small improvements today with less scooting of her foot and able to do small partial steps, in some cases she has to move her right LE 3 times to complete a functional step, pace of gait is very slow, she tolerates wearing sling well when up PT-Balance Assessment Sitting Balance and Reactions Static Sitting Balance Ability Normal Dynamic Sitting Balance Ability Normal Standing Balance and Reactions Static Standing Balance Ability Fair Dynamic Standing Balance Ability Fair Device Used quad cane M5 PT-IP Objective Assessments Start: 03/07/18 16:57 Freq: NEEDED Status: Active Protocol: Document 03/07/18 16:58 DLM (Rec: 03/07/18 17:30 DLM [id number]) Orientation Orientation/Cognition Level of Alertness Alert Orientation Name Age Birthday Month Date Year Day of Week Place Situation Safety Awareness Decreased Safety Awareness Memory Description No Deficits Noted Comments intermittent difficulty forming words during conversation, difficulty problem solving for home safety and discharge planning Gross Range of Motion Upper Extremity ROM Assessment Right Impaired Impairments unable to assess right shoulder due to fx and bracing Lower Extremity ROM Assessment Right Impaired Impairments pain with right hip flexion, tolerates 90 degrees in sitting Strength Upper Extremity Strength Assessment Right Impaired Shoulder not tested due to fx Lower Extremity Strength Assessment Right Impaired Hip hip flexion 2+/5 with pain Knee 5/5 Ankle DF 5/5 Coordination Assessment Gross Coordination Gross Coordination WNL Sensation Assessment Sensation Gross Sensation WNL Muscle Tone Muscle Tone WNL Yes M6 PT-IP Treatment Start: 03/07/18 16:57 Freq: NEEDED Status: Active Protocol: Document 03/10/18 15:49 DLM (Rec: 03/10/18 16:20 DLM [id number]) Physical Therapy Treatment Exercises Exercises Ankle Pumps Gluteal Sets Quad Sets Heel Slides Supine Hip Abduction Education Education Provided Precautions Safety Other Treatments Other Treatment Performed sling and right humeral fx brace still in place on right UE M7 PT-IP Assessment and Plan Start: 03/07/18 16:57 Freq: NEEDED Status: Active Protocol: Document 03/10/18 15:49 DLM (Rec: 03/10/18 16:20 DLM [id number]) PT Summary Assessment and Plan Summary Assessment Summary She continues to progress slowly in therapy. Her right hip pain interferes with her ability to step functionally for gait. Her gait showed small improvements in her distance and her stepping this visit. Pt tearful today. She shows good effort during therapy. She reports ice helps manage her pain. Frequency of Treatment Frequency Of Treatment Twice a Day Treatment Plan Other Recommendations and Next Treatment slowly advance gait distance Focus as tolerated, attempt standing LE exercises as pain allows Recommendations To Nursing Amount of Assist Needed 1 Person Assist Discharge Recommendations PT Discharge Recommendations SNF Rehab
[2018-03-11 00:18] VITALS: BP 154/67; PULSE 74; RESP 16; TEMP 37; O2SAT 97
[2018-03-11 04:07] VITALS: BP 150/66; PULSE 66; RESP 16; TEMP 36.9; O2SAT 96
[2018-03-11] MEDS: OXYCODONE/ACETAMINOPHEN 5/325 TABLET 1 TAB PO ×3 (05:38→13:17)
[2018-03-11] MEDS: PANTOPRAZOLE 40 MG TABLET PO (05:38)
[2018-03-11 07:52] VITALS: BP 133/60; PULSE 63; RESP 16; TEMP 36.6; O2SAT 97
--- NOTE | 2018-03-11 09:01 | PM.DS.1 ---
History of Present Illness Date Patient Seen: 03/11/18 Time Patient Seen: 09:04 Chief complaint: Ground Level Fall Narrative: Narrative: PATIENT IS A 77-YEAR-OLD FEMALE WAS IN HER USUAL HEALTH UNTIL THE DAY OF ADMISSION WHEN SHE HAD A FALL. PATIENT STATES THAT SHE WORKS FOR [employer] AND PICKED UP BY A VEHICLE AND MARVEL TROPONIN UP TO AND A CORDIS TO THE [facility] OFFICE. [place] THEN [place]ENT [place] AND ON THE WAY BACK FROM [place] [employer] [place] HER FOOT STRUCK A CONCRETE AREA AND SHE FELL. SHE 1ST NOTICED PAIN OF HER SHOULDER AND SHE ALSO HAD BLEEDING FROM HER EYEBROW AREA. [place] FEMALE BYSTANDER CALLED 911 AND SHE WAS BROUGHT TO THE ED. PRIOR TO THE FALL THERE WAS NO PRESYNCOPE SYNCOPE LIGHTHEADEDNESS PALPITATIONS CHEST PAIN SHORTNESS OF BREATH. AFTER THE FALL THERE WAS NO LOSS OF CONSCIOUSNESS MOTOR WEAKNESS DYSARTHRIA DYSPHAGIA SPEECH DIFFICULTY SHE PRESENTED TO THE ED COGNITIVELY INTACT WITH NORMAL VITAL SIGNS. CT OF THE HEAD REVEALED SUBARACHNOID HEMORRHAGE BILATERALLY, WITHOUT MASS EFFECT, MILD OVERALL SEVERITY. THE CASE WAS DISCUSSED WITH DR. SEGUNDO NEUROSURGEON AT THE [facility]. HE DID NOT FEEL THAT ANY ACUTE INTERVENTION WAS NECESSARY AT THIS TIME. HE RECOMMENDED FOLLOW-UP CT HEAD EXAMS. IF THESE WERE UNREMARKABLE THEN IT WOULD BE APPROPRIATE FOR OUTPATIENT FOLLOW-UP WITH THE PATIENT'S PRIMARY CARE PHYSICIAN. SHE ALSO COMPLAINED OF SHOULDER PAIN MENTIONED ABOVE HUMERUS X-RAY TWO VIEW ON THE RIGHT WAS TAKEN. IT REVEALED A FEMORAL FRACTURE. EMERGENCY ROOM PHYSICIAN DISCUSSED THE INJURY WITH DR. CLARKE OF ORTHOPEDICS AND HE FAILED OUTPATIENT FOLLOW-UP WOULD BE SUFFICIENT AND RECOMMENDED THAT A SPLINT BE PLACED. ALSO THE PATIENT COMPLAINED OF RIGHT HIP PAIN. X-RAY REVEALED HER PRIOR RIGHT TOTAL HIP ARTHROPLASTY, NO TRAUMA WAS FOUND, NO EVIDENCE OF DEVICE LOOSENING OR DISRUPTION. BECAUSE OF HER KNEE FOR FATHER EVALUATION SHE WAS ADMITTED TO THE HOSPITAL Discharge Providers Date of admission: 03/06/18 21:03 Consults: 03/06/18 21:28 Consult to Physician Routine Comment: Consulting Provider: Irvin Echeverria Reason for consultation: admission Has provider been notified: Yes 03/07/18 08:36 Consult to General Surgery Routine Comment: Consulting Provider: Mary Meza Reason for consultation: trauma, stable SAH Has provider been notified: Yes 03/07/18 10:06 Consult to Occupational Therapy Evaluate & Treat Comment: Physician Instructions: Evaluate and treat 03/07/18 10:08 Consult to Physical Therapy Evaluate & Treat Comment: Physician Instructions: Evaluate and Treat Discharge provider: Dulce Mock MD Summary Discharge Diagnosis: Left humerus fracture Hip contusion Knee contusion Hypertension Hyperlipidemia GERD Subarachnoid hemorhage following fall Hospital Course: Patient was admitted to the hospital for evaluation of her fall, She was found to have a small subarachnoid heamorrahge. Follow up Head CT revealed no expansion or futher intervention needed. She was found to have a left humerus fracture. She was placed in a sling and surgical intervention was not needed. She continued to have pain in her right hip and knee. Patient had a CT of the pelvis which revealed no evidence of fracture or loosening of her prosthesis. Arrangements were made for her to discharge to the SNF and she will go [facility]. Patient has an open L&I claim. She would prefer to go to [facility] in [place]. They have agreed to accept her once the L&I process has been verified and confirmed. Status at Discharge Cognitive/behavioral status at discharge: Excellent Functional status at discharge: independent ambulation Overall status at discharge: patient is not back to baseline Time Spent with Patient Less than 30 minutes Exam Vital Signs (past 8 hours): - 03/11/18 04:07 03/11/18 07:52 Temperature 98.5 F 97.9 F Pulse Rate 66 63 Respiratory Rate 16 16 Blood Pressure 150/66 H 133/60 H Pulse Oximetry 96 97 Oxygen Delivery Method Room Air Oxygen Flow Rate 0 Narrative Exam Narrative: Lungs: Clear to auscultation CV: RRR nl S1S2 3/6 JOE Abd: soft/non tender/ non distended Ext: Right arm in sling No edema Right facila contusion with eccymosis over right eye, healing laceration over eye brown Objective Labs Result Diagrams: 03/06/18 13:15 03/06/18 13:15 Discharge Plan Discharge Plan Patient Disposition: SNF Transfer to: [facility] Transportation: Cabulance I certify the postop hospital assisted care is medically necessary on a continuing basis for any conditions for which he/ she received care during this hospitalization.: Yes The receiving facility has agreed to accept transfer and provide medical treatment.: Yes Provider Discharge Instructions Diet: Low-sodium Food texture: Regular Activity: as tolerated, non weight bearing to right arm Special Rehabilitation Services Reason for rehabilitation: Recovery r/t decondition Rehab type: Physical therapy and Occupational therapy Discharge Data Attending Provider: Irvin Echeverria Admit Date/Time: 03/06/18 21:03 Quality VTE Deep Vein Thrombosis/Pulmonary Embolism Present on Admission: No
--- NOTE | 2018-03-11 09:04 | P.DS_ITS ---
History of Present Illness Date Patient Seen: 03/11/18 Time Patient Seen: 09:04 Chief complaint: Ground Level Fall Narrative: Narrative: PATIENT IS A 77-YEAR-OLD FEMALE WAS IN HER USUAL HEALTH UNTIL THE DAY OF ADMISSION WHEN SHE HAD A FALL. PATIENT STATES THAT SHE WORKS FOR [employer] AND PICKED UP BY A VEHICLE AND MARVEL TROPONIN UP TO AND A CORDIS TO [facility]ICE. SHE THEN WENT [place] AND ON THE WAY BACK FROM [place] AT [place] HER FOOT STRUCK A CONCRETE AREA AND SHE FELL. SHE 1ST NOTICED PAIN OF HER SHOULDER AND SHE ALSO HAD BLEEDING FROM HER EYEBROW AREA. [place] FEMALE BYSTANDER CALLED 911 AND SHE WAS BROUGHT TO THE ED. PRIOR TO THE FALL THERE WAS NO PRESYNCOPE SYNCOPE LIGHTHEADEDNESS PALPITATIONS CHEST PAIN SHORTNESS OF BREATH. AFTER THE FALL THERE WAS NO LOSS OF CONSCIOUSNESS MOTOR WEAKNESS DYSARTHRIA DYSPHAGIA SPEECH DIFFICULTY SHE PRESENTED TO THE ED COGNITIVELY INTACT WITH NORMAL VITAL SIGNS. CT OF THE HEAD REVEALED SUBARACHNOID HEMORRHAGE BILATERALLY, WITHOUT MASS EFFECT, MILD OVERALL SEVERITY. THE CASE WAS DISCUSSED WITH DR. SEGUNDO NEUROSURGEON AT THE [facility]. HE DID NOT FEEL THAT ANY ACUTE INTERVENTION WAS NECESSARY AT THIS TIME. HE RECOMMENDED FOLLOW-UP CT HEAD EXAMS. IF THESE WERE UNREMARKABLE THEN IT WOULD BE APPROPRIATE FOR OUTPATIENT FOLLOW-UP WITH THE PATIENT'S PRIMARY CARE PHYSICIAN. SHE ALSO COMPLAINED OF SHOULDER PAIN MENTIONED ABOVE HUMERUS X-RAY TWO VIEW ON THE RIGHT WAS TAKEN. IT REVEALED A FEMORAL FRACTURE. EMERGENCY ROOM PHYSICIAN DISCUSSED THE INJURY WITH DR. CLARKE OF ORTHOPEDICS AND HE FAILED OUTPATIENT FOLLOW-UP WOULD BE SUFFICIENT AND RECOMMENDED THAT A SPLINT BE PLACED. ALSO THE PATIENT COMPLAINED OF RIGHT HIP PAIN. X-RAY REVEALED HER PRIOR RIGHT TOTAL HIP ARTHROPLASTY, NO TRAUMA WAS FOUND, NO EVIDENCE OF DEVICE LOOSENING OR DISRUPTION. BECAUSE OF HER KNEE FOR FATHER EVALUATION SHE WAS ADMITTED TO THE HOSPITAL Discharge Providers Date of admission: 03/06/18 21:03 Consults: 03/06/18 21:28 Consult to Physician Routine Comment: Consulting Provider: Irvin Echeverria Reason for consultation: admission Has provider been notified: Yes 03/07/18 08:36 Consult to General Surgery Routine Comment: Consulting Provider: Mary Meza Reason for consultation: trauma, stable SAH Has provider been notified: Yes 03/07/18 10:06 Consult to Occupational Therapy Evaluate & Treat Comment: Physician Instructions: Evaluate and treat 03/07/18 10:08 Consult to Physical Therapy Evaluate & Treat Comment: Physician Instructions: Evaluate and Treat Discharge provider: Dulce Mock MD Summary Discharge Diagnosis: Left humerus fracture Hip contusion Knee contusion Hypertension Hyperlipidemia GERD Subarachnoid hemorhage following fall Hospital Course: Patient was admitted to the hospital for evaluation of her fall , She was found to have a small subarachnoid heamorrahge. Follow up Head CT revealed no expansion or futher intervention needed. She was found to have a left humerus fracture. She was placed in a sling and surgical intervention was not needed. She continued to have pain in her right hip and knee. Patient had a CT of the pelvis which revealed no evidence of fracture or loosening of her prosthesis. Arrangements were made for her to discharge to the SNF and [facility]. Patient has an open L&I claim. She would prefer to go to [facility] in [place]. They have agreed to accept her once the L&I process has been verified and confirmed. Status at Discharge Cognitive/behavioral status at discharge: Excellent Functional status at discharge: independent ambulation Overall status at discharge: patient is not back to baseline Time Spent with Patient Less than 30 minutes Exam Vital Signs (past 8 hours): - 03/11/18 04:07 03/11/18 07:52 Temperature 98.5 F 97.9 F Pulse Rate 66 63 Respiratory Rate 16 16 Blood Pressure 150/66 H 133/60 H Pulse Oximetry 96 97 Oxygen Delivery Method Room Air Oxygen Flow Rate 0 Narrative Exam Narrative: Lungs: Clear to auscultation CV: RRR nl S1S2 3/6 JOE Abd: soft/non tender/ non distended Ext: Right arm in sling No edema Right facila contusion with eccymosis over right eye, healing laceration over eye brown Objective Labs Result Diagrams: 03/06/18 13:15 03/06/18 13:15 Discharge Plan Discharge Plan Patient Disposition: SNF Transfer to: [facility] Transportation: Cabulance I certify the postop hospital residential care is medically necessary on a continuing basis for any conditions for which he/ she received care during this hospitalization.: Yes The receiving facility has agreed to accept transfer and provide medical treatment.: Yes Provider Discharge Instructions Diet: Low-sodium Food texture: Regular Activity: as tolerated, non weight bearing to right arm Special Rehabilitation Services Reason for rehabilitation: Recovery r/t decondition Rehab type: Physical therapy and Occupational therapy Discharge Data Attending Provider: Irvin Echeverria Admit Date/Time: 03/06/18 21:03 Quality VTE Deep Vein Thrombosis/Pulmonary Embolism Present on Admission: No
[2018-03-11] MEDS: MAGNESIUM HYDROXIDE 30 ML UDC PO (09:21)
[2018-03-11] MEDS: AMLODIPINE 2.5 MG TABLET PO (09:22)
[2018-03-11] MEDS: DOCUSATE 100 MG CAPSULE PO (09:22)
[2018-03-11] MEDS: CALCIUM CARB/VIT D3 500/200 TABLET 1 EACH PO (09:22)
[2018-03-11] MEDS: ASCORBIC ACID 500 MG TABLET PO (09:23)
[2018-03-11] MEDS: SENNOSIDES 8.6 MG TABLET PO (09:24)
[2018-03-11] MEDS: MULTIVITAMIN 1 TABLET 1 TAB PO (09:24)
[2018-03-11] MEDS: CARVEDILOL 12.5 MG TABLET PO (09:29)
--- NOTE | 2018-03-11 10:18 | PC.NURSE ---
Addendum entered by Juju Donnelly R.N. 03/11/18 14:03: TSF - prior to transfer and after lunch, given percocet x1 tab for pain 3 on scale 0/10, belongings gathered, including glasses and cell phone, packet provided to [facility] staff , tsf to and report called to Ashia BENITEZ. Original Note: AM NOTE - assisted slowly oob x 1 person, dangled then stood using cane and tsf to [facility] w/void, discussed constipation and pain medications, refusing a dulcolax suppos this am, did admin MOM, stool softener and senna tab, healing bruises r orbit, buddhism and r hip, sutures intact above r eyebrow, no decr vision but pt glasses were broken and are now taped together able to see with them on, PT/OT in this am requested bed bath and provided, given percocet po x1 tab after breakfast for pain 3 on scale 0/10.
--- NOTE | 2018-03-11 10:40 | PT.IPTN ---
Current Diagnoses Pain in unspecified hip (03/06/18) Traumatic subarachnoid hemorrhage without loss of consciousness, initial encounter (03/06/18) Traumatic subarachnoid hemorrhage with loss of consciousness of unspecified duration, initial encounter (03/06/18) Unspecified fracture of upper end of right humerus, initial encounter for closed fracture (03/06/18) Physical Therapy Treatment Note M2 PT-IP Current Condition Start: 03/07/18 16:57 Freq: NEEDED Status: Active Protocol: Document 03/09/18 09:25 TMS (Rec: 03/09/18 10:00 TMS [email or web address]) Physical Therapy Current Condition Current Condition Evaluation Date 03/07/18 Treatment Diagnosis impaired gait, right hip pain, right humeral fx Onset Date 03/06/18 Precautions Shoulder Precautions Sling Brace right humeral brace on pt for displaced fx Other Precautions no use of right shoulder, no weight bearing on right shoulder Weight Bearing Status Weight Bearing Status Full Weight Bearing Allowed Weight Bearing Amount (enter % no limitations right LE or #) (%) M3 PT-IP Subjective Start: 03/07/18 16:57 Freq: NEEDED Status: Active Protocol: Document 03/11/18 10:40 AB (Rec: 03/11/18 11:22 AB [email or web address]) Subjective Physical Therapy Visit Type Type Treatment Note Visit Start Time 10:40 Visit Stop Time 11:12 Total Visit Minutes 32 Number of GUN TESTER Visits 0 Physical Therapy Visit Comments Patient Comments pt agreeable to do therapy Therapy Pain Assessment Pain When Pain Assessed At Rest Pain Present Pain Present Pain Reported Location Right Shoulder Intensity 3 Scale Used Numeric (1 - 10) Pain Management Techniques Apply Cold Right Hip Intensity 3 Scale Used Numeric (1 - 10) Pain Management Techniques Apply Cold M4 PT-IP Mobility and Gait Start: 03/07/18 16:57 Freq: NEEDED Status: Active Protocol: Document 03/11/18 10:40 AB (Rec: 03/11/18 11:22 AB [email or web address]) PT-Transfer Assessment Sit to and From Stand Sit to and from Stand Contact Guard Assistance Minimal Assistance Use of Upper Extremities Gait Assessment Gait Gait Assistance Required: Minimum Assistance Distance (Feet) (feet) 50 Able to Maintain Weight Bearing Status Yes During Gait Assistive Devices Assistive Device Gait Belt Small Based Quad Cane Orthotic/Prosthetic Devices or Brace: Yes Gait Deviations General Gait Pattern Decreased Stride Length Decreased Feet Clearance Step-to Gait Factors Limiting Gait Function Factors Limiting Gait Function Decreased Activity Tolerance Decreased Strength Limited Range of Motion Pain Poor Balance Poor Safety Awareness Comments Gait Comments pt required increase time to complete task. unable to elevate RLE much during ambulation and tends to just drag and slide it forward. pt stated that she cannot lift her RLE up. M5 PT-IP Objective Assessments Start: 03/07/18 16:57 Freq: NEEDED Status: Active Protocol: Document 03/07/18 16:58 DLM (Rec: 03/07/18 17:30 DLM [id number]) Orientation Orientation/Cognition Level of Alertness Alert Orientation Name Age Birthday Month Date Year Day of Week Place Situation Safety Awareness Decreased Safety Awareness Memory Description No Deficits Noted Comments intermittent difficulty forming words during conversation, difficulty problem solving for home safety and discharge planning Gross Range of Motion Upper Extremity ROM Assessment Right Impaired Impairments unable to assess right shoulder due to fx and bracing Lower Extremity ROM Assessment Right Impaired Impairments pain with right hip flexion, tolerates 90 degrees in sitting Strength Upper Extremity Strength Assessment Right Impaired Shoulder not tested due to fx Lower Extremity Strength Assessment Right Impaired Hip hip flexion 2+/5 with pain Knee 5/5 Ankle DF 5/5 Coordination Assessment Gross Coordination Gross Coordination WNL Sensation Assessment Sensation Gross Sensation WNL Muscle Tone Muscle Tone WNL Yes M6 PT-IP Treatment Start: 03/07/18 16:57 Freq: NEEDED Status: Active Protocol: Document 03/11/18 10:40 AB (Rec: 03/11/18 11:22 AB [email or web address]) Physical Therapy Treatment Education Education Provided Precautions Safety M7 PT-IP Assessment and Plan Start: 03/07/18 16:57 Freq: NEEDED Status: Active Protocol: Document 03/11/18 10:40 AB (Rec: 03/11/18 11:22 AB [email or web address]) PT Summary Assessment and Plan Potential Rehabilitation Potential Good Summary Impairments Pain ROM Strength Balance Coordination Bed Mobility Transfers Gait Activity Tolerance Progress Towards Goals Slow Progress due to Pain Slow Progress due to Activity Tolerance Assessment Summary pt requiring one person assist with mobility using small base quad cane for ambulation. pt with difficulty moving RLE during ambulation and is NWB on RUE. pt will require SNF rehab to improve strength and mobility prior to d/c home Goals Bed Mobility Goal Standby Assistance Transfer Goal Standby Assistance Cane Gait Goal Standby Assistance Cane Gait Distance 100 Frequency of Treatment Frequency Of Treatment Twice a Day Treatment Plan Physical Therapy Treatment Plan Bed Mobility Training Transfer Training Gait Training Recommendations To Nursing Amount of Assist Needed 1 Person Assist Discharge Recommendations PT Discharge Recommendations SNF Rehab
--- NOTE | 2018-03-11 11:04 | OT.IP.TRT ---
Current Diagnoses Pain in unspecified hip (03/06/18) Traumatic subarachnoid hemorrhage without loss of consciousness, initial encounter (03/06/18) Traumatic subarachnoid hemorrhage with loss of consciousness of unspecified duration, initial encounter (03/06/18) Unspecified fracture of upper end of right humerus, initial encounter for closed fracture (03/06/18) Occupational Therapy Treatment Note M2 OT-IP Current Condition Start: 03/07/18 18:02 Freq: Status: Active Protocol: Document 03/07/18 16:15 [facility] (Rec: 03/07/18 19:10 [facility] [email or web address]) Occupational Therapy Current Condition Current Condition Evaluation Date 03/07/18 Treatment Diagnosis Right Humerus FX, bilateral subarchnoid Diagnosis Onset Date 03/06/18 Post Operative Precautions Shoulder Precautions Sling Other Precautions no use of right shoulder, no weight bearing on right shoulder Weight Bearing Status Weight Bearing Status Full Weight Bearing Allowed Weight Bearing Amount (enter % no limitations right LE or #) (%) M3 OT- IP Subjective and Pain Start: 03/07/18 18:02 Freq: Status: Active Protocol: Document 03/11/18 10:56 [facility] (Rec: 03/11/18 11:03 [facility] [email or web address]) OT- Subjective Occupational Therapy Visit Type Type Treatment Note Visit Start Time 09:15 Visit Stop Time 10:00 Total Visit Minutes 45 Notes Pt agreeable to do sponge bath . OT Pain Assessment Pain When Pain Assessed At Rest Pain Present Pain Present Pain Reported Location Right Arm Intensity 4 M4 OT- IP ADL's Start: 03/07/18 18:02 Freq: Status: Active Protocol: Document 03/11/18 10:56 [facility] (Rec: 03/11/18 11:03 [facility] [email or web address]) OT ADL-Grooming General Evaluation Grooming Ability Minimal Assistance Areas Needing Assistance Retrieving/Set-up of Grooming Items Combing/Brushing Hair Comments OT Grooming Comments Assist to brush/comb hair and put up into ponytail. OT ADL-Dressing General Eval Upper Body Dressing Ability Total Assistance Lower Body Dressing Ability Maximum Assistance Comments OT Dressing Comments Total assist for humeral brace and sling. OT ADL-Bathing Bathing Type Bathing Type Sponge Bath General Evaluation Bathing Ability Maximal Assistance Areas Needing Assistance Retrieving/Setting Up Items Wash/Dry Upper Body Wash/Dry Back Wash/Dry Perineal Area Wash/Dry Lower Extremities Comments OT Bathing Comments Pt able to assist to wash face and otherwise OT and POWER SHEAR OPERATOR having to assist pt for all other areas. Doctor okay for brace to be taken off for sponge bath. M5 OT- IP IADL's Start: 03/07/18 18:02 Freq: Status: Active Protocol: Document 03/07/18 16:15 [facility] (Rec: 03/07/18 19:10 [facility] [email or web address]) OT-Instrumental Activities of Daily Living Home Safety Awareness Home Safety Comments Pt able to answer home safety question with 90% accuracy. Money Management Money Management Comments Pt having trouble with subraction 100-7's and needing increased time. Meal Preparation Meal Preparation Comments Will need assist. Architectural Project Manager Architectural Project Manager Comments Will need assist. Driving Driving Comments Will not be able to drive. M6 OT- IP Functional Cognition Start: 03/07/18 18:02 Freq: Status: Active Protocol: Document 03/11/18 10:56 [facility] (Rec: 03/11/18 11:03 [facility] [email or web address]) Cognitive Factors Limiting Selfcare Function Cognitive Ability Level of Alertness Alert Patient Orientation Name Age Birthday Month Date Year Day of Week Place Situation Attention Span Ability Capable of Focused Attention Capable of Sustained Attention Ability to Follow Commands Able to Follow Multi-Step Commands Memory Description Short Term Impaired Working Impaired Safety Awareness Underestimates Need for Assistance Problem Solving Ability Needs Assist to Identify Solutions Cognitive Comments Cognitive Assessment Comments Pt needs lots of encouragement to participate. Pt not open to suggestions for family to get her clothing, they live too far away. Noted short term memory not able to recall having brief changed and insisting has not been changed . M7 OT- IP Mobility and Balance Start: 03/07/18 18:02 Freq: Status: Active Protocol: Document 03/11/18 10:56 [facility] (Rec: 03/11/18 11:03 [facility] [email or web address]) OT-Transfer Assessment Sit to and From Stand Sit to and from Stand Contact Guard Assistance M8 OT- IP Objective Assessments Start: 03/07/18 18:02 Freq: Status: Active Protocol: Document 03/11/18 10:56 [facility] (Rec: 03/11/18 11:03 [facility] [email or web address]) OT Sensation Assessment Edema Edema Comments RUE swollen on lateral side of right shoulder. M9 OT- IP Assessment and Plan Start: 03/07/18 18:02 Freq: Status: Active Protocol: Document 03/11/18 10:56 [facility] (Rec: 03/11/18 11:03 [facility] [email or web address]) OT Summary Assessment and Plan Summary Progress Towards Goals Slow Progress due to Pain Slow Progress due to Medical Issues Slow Progress due to Cognition Assessment Summary Pt continues to need extensive assist for all ADl needs and for mobility and to be going to skilled rehab. Discharge Recommendations OT Discharge Recommendations SNF Rehab Home Equipment Needs BSC, tub bench
--- NOTE | 2018-03-11 16:08 | CM.DPC ---
DCP: continued: met with pt this morning. Confirmed plan now for [facility] today with ongoing followup as per plan yesterday with L&I and her preferred snf in [place]. Pt's coworkers from [employer] were in [place] today and stopped in to see pt and cheer her on in her rehab. [facility] was able to provide a pvt room for pt per pt's request. Pt did d/c to [facility] this afternoon 1330. All orders and PASRR were faxed to [facility] with originals to [facility] packet to go with pt.
== END 2018-03-11 14:00 | DRG 86 ==
LOC: ED 19:29 → AC 21:06
PROVIDERS: Emergency Medicine; Admitting Provider Internal Medicine; Emergency Provider Emergency Medicine; Visit Provider Internal Medicine
DX: S06.6X0A Traumatic subarachnoid hemorrhage without loss of consciousness, initial encounter (principal); S42.291A Other displaced fracture of upper end of right humerus, initial encounter for closed fracture; W01.0XXA Fall on same level from slipping, tripping and stumbling without subsequent striking against object, initial encounter; Y92.89 Other specified places as the place of occurrence of the external cause; S01.111A Laceration without foreign body of right eyelid and periocular area, initial encounter; M47.9 Spondylosis, unspecified; I10 Essential (primary) hypertension; E78.5 Hyperlipidemia, unspecified; Z95.2 Presence of prosthetic heart valve; Z96.653 Presence of artificial knee joint, bilateral; Z96.641 Presence of right artificial hip joint; S70.01XA Contusion of right hip, initial encounter; K21.9 Gastro-esophageal reflux disease without esophagitis
CPT/HCPCS: 12013; 29240; 36415; 36592; 70450; 71045; 72125; 72192; 73030; 73060; 73502; 80048; 85025; 85610; 85730; 96374; 96375; 97110; 97112; 97116; 97162; 97166; 97530; 97535; 99284; 99285; 99291; J1170; J2405

== ENCOUNTER → 2018-03-16 07:39 | Outpatient (REF) | payer MEDICARE, OTHER, SELFPAY ==
[2018-03-06 21:13] VITALS: BMI 26.6
[2018-03-16 09:23] LABS: Add Manual Diff / Slide Review NO; Basophils Percent Auto 0.7 % (0-2); Eosinophils Percent Auto 4.6 % (2-4); Lymphocytes Percent Auto 17.9 % (25-40); Mean Corpuscular HGB Conc 33.4 % (30-36); Mean Corpuscular Hemoglobin 29.7 PG (26-34); Mean Corpuscular Volume 88.9 fL (80-100); Monocytes Percent Auto 6.8 % (3-14); Neutrophils Absolute Auto 5000 /uL (3000-5900); Platelet Count 264 X10^3/uL (150-400); Red Blood Cell Count 3.71 X10^6/uL (4.0-5.2); Red Cell Distribution Width 14.5 % (11.6-14.8); White Blood Cell Count 7.1 X10^3/uL (4.5-11.0)
== END ==
LOC: LAB 07:39
PROVIDERS: Visit Provider Internal Medicine
DX: D72.9 Disorder of white blood cells, unspecified (principal)
CPT/HCPCS: 36415; 85025